=== PATIENT | female | born 1945 | race Caucasian/White ===

== ENCOUNTER 2017-02-07 11:23 | Outpatient (CLI) | payer MEDICARE, OTHER ==
--- NOTE | 2017-02-08 17:04 | Mammography Report ---
DIGITAL SCREENING MAMMOGRAM: 02/07/2017 CLINICAL INDICATION: A 71-year-old with history of late childbearing for screening. COMPARISON: 07/2014, 06/2014, 10/2012, 02/2011, 09/2008. TECHNIQUE: Routine CC and MLO projections were obtained of the breasts. The breasts again demonstrate heterogeneously dense fibroglandular parenchyma bilaterally. There is a shifting pattern of circumscribed nodules bilaterally, compatible with waxing and waning cysts. Co arse and punctate, typically benign calcifications are present. No suspicious masses, clustered micr ocalcifications, or regions of architectural distortion are identified. IMPRESSION: BENIGN FINDINGS. RECOMMENDATION: ROUTINE ANNUAL SCREENING UNLESS OTHERWISE CLINICALLY INDICATED. BIRADS CATEGORY: 2, BENIGN FINDINGS. STANDARD QUALIFYING STATEMENTS 1. This examination was reviewed with the aid of Computed-Aided Detection (CAD). 2. A negative or benign imaging report should not delay biopsy if clinically suspicious findings are present. Consider surgical consultation if warranted. More than 5% of cancers are not identified b y imaging. 3. Dense breasts may obscure an underlying neoplasm. JOB #: [id number] EXT JOB #:[id number]
== END 2017-02-07 11:24 | disposition home or self-care (01) ==
LOC: DI.S 11:23
PROVIDERS: ATTEND Physician Assistant
DX: Z12.31 Encounter for screening mammogram for malignant neoplasm of breast (principal)
CPT/HCPCS: 77067

== ENCOUNTER 2017-05-19 09:39 | Outpatient (CLI) | payer MEDICARE, OTHER ==
--- NOTE | 2017-05-19 16:41 | CT Report ---
EXAM: CT MAXILLOFACIAL WITHOUT CONTRAST EXAM DATE: 05/19/2017. CLINICAL HISTORY: Left maxillary pain and congestion, sinus pressure, headaches. COMPARISON: CT head, 05/27/2013. TECHNIQUE: Axial images were acquired of the face without intravenous contrast. Coronal and Sagittal reconstructions are created from source data. In accordance with CT protocol optimization, one or more of the following dose reduction techniques w ere utilized for this exam: automated exposure control, adjustment of mA and/or KV based on patient s ize, or use of iterative reconstructive technique. FINDINGS: Temporomandibular joints are normally located. Zygomatic arches are intact. No evident intracranial abnormality is identified, brain is incompletely visualized. Visualized mastoids are clear. No middle ear effusions. No nasopharyngeal mass. Bony nasal septum is midline. No convincing evidence of either acute or chronic maxillary sinusitis. No evidence of acute or chronic sphenoid or ethmoid sinusitis. Frontal sinuses are well aerated, a fi nding not typically seen in patients with chronic sinusitis. Right-sided middle turbinate randi bullosa is noted. IMPRESSION: No convincing evidence of acute or chronic maxillary sinusitis. Referring Provider Line: [phone] SITE ID: [id number]
== END 2017-05-19 09:40 | disposition home or self-care (01) ==
LOC: DI 09:39
PROVIDERS: ATTEND Physician Assistant
DX: R51 Headache (principal)
CPT/HCPCS: 70486

== ENCOUNTER 2017-11-19 09:45 | Day surgery (SDC) | payer MEDICARE, OTHER ==
[2017-11-19] MEDS ORDERED: LACTATED RINGERS 1,000 ML IV ONE ×2 (10:23→11:32)
[2017-11-19] MEDS ORDERED: MIDAZOLAM 2 MG/2 ML VIAL IVP ONE (10:49)
[2017-11-19] MEDS ORDERED: fentaNYL 250 MCG/5 ML VIAL IVP ONE (10:49)
[2017-11-19] MEDS ORDERED: LIDO GARGLE 30 ML BOTTLE TOP ONE (10:52)
[2017-11-19] MEDS ORDERED: LIDO GARGLE 30 ML BOTTLE ONE (10:57)
[2017-11-19 12:51] VITALS: BP 132/68
== END 2017-11-19 09:46 | disposition home or self-care (01) ==
LOC: SDS 09:45
PROVIDERS: ATTEND Surgery
PROC: 0DJD8ZZ Inspection of Lower Intestinal Tract, Via Natural or Artificial Opening Endoscopic (ICD-10-PCS; principal; 2017-11-19 11:00)
PROC: 0DB58ZX Excision of Esophagus, Via Natural or Artificial Opening Endoscopic, Diagnostic (ICD-10-PCS; 2017-11-19 11:00)
DX: Z12.11 Encounter for screening for malignant neoplasm of colon (principal); K22.70 Barrett's esophagus without dysplasia; K57.30 Diverticulosis of large intestine without perforation or abscess without bleeding; K64.8 Other hemorrhoids
CPT/HCPCS: 43239; A9270; G0121; J3010; J7120

== ENCOUNTER 2018-01-11 08:29 | Outpatient (CLI) | payer MEDICARE, OTHER | END 2018-01-11 08:30 | disposition critical access hospital (66) | LOC: EMS 08:29 | PROVIDERS: ATTEND Surgery | DX: R06.02 Shortness of breath (principal) | CPT/HCPCS: A0425; A0429 ==

== ENCOUNTER 2018-01-11 08:55 | Emergency (ER) | payer MEDICARE, OTHER ==
[2018-01-11] MEDS ORDERED: LIDOCAINE VISCOUS 2% 15 ML UDC MM STA (09:48)
[2018-01-11] MEDS ORDERED: MAG HYDROX/AL HYDROX/SIMETH 30 ML UDC PO STA ×2 (09:48→11:05)
[2018-01-11] MEDS ORDERED: PHENobarb/HYOSCY/ATROPINE/SCOP 5 ML UDC PO STA (09:48)
--- NOTE | 2018-01-11 09:52 | ED Physician Documentation ---
PD HPI CHEST PAIN - Stated complaint Stated Complaint: SOA - Chief complaint Chief Complaint: Resp - History obtained from History obtained from: Patient - History of Present Illness Timing - onset: Today Quality: Other (Chest feeling "stressed.") Location: Substernal Associated symptoms: Shortness of air - Additional information Additional information: The patient is a 72-year-old female with a history of Heath's esophagus, who presents with complaint of her chest feeling "stressed." She does not describe it as pain or pressure. It is substernal, with associated difficulty breathing. 3 days ago she had a fever to 102. She denies fever today. She has had productive cough and sore throat. This morning she had one episode of vomiting prior to the onset of her chest discomfort. Her last flareup parents esophagus was more than one year ago. She has been treated with omeprazole in the past, but has not been taking it recently. She denies history of coronary artery disease. Cardiac risk factors are negative for cigarette smoking, diabetes, hypertension, hyperlipidemia, and family history of early ME. Review of Systems Constitutional: reports: Fever (3 days ago and 2 days ago.) Nose: denies: Congestion Throat: reports: Sore throat Cardiac: reports: Chest pain / pressure. denies: Palpitations Respiratory: reports: Dyspnea, Cough GI: reports: Vomiting ( once). denies: Abdominal Pain : denies: Dysuria Skin: denies: Rash Musculoskeletal: denies: Extremity pain, Extremity swelling Neurologic: denies: Focal weakness, Numbness, Headache PD PAST MEDICAL HISTORY - Past Medical History Cardiovascular:  Respiratory: Pneumonia Endocrine/Autoimmune: HyPOthyroidism, Other (Chronic hyponatremia) GI: GERD, Ulcers, Other (Heath's esophagus) : Other HEENT: None Psych: Claustrophobia Musculoskeletal: Osteoporosis, Chronic back pain Derm: Eczema - Past Surgical History Past Surgical History: Yes General: Colonoscopy, EGD HEENT: Tonsil/Adenoidectomy - Present Medications Home Medications: Ambulatory Orders Medication Instructions Recorded Confirmed Levothyroxine Sodium 100 mcg PO DAILY 09/25/12 04/10/16 Thyroid,Pork [[place] Thyroid] 30 mg PO DAILY 11/16/17 11/19/17 Cholecalciferol (Vitamin D3) unit PO 01/11/18 [Vitamin D3] Omeprazole 20 mg PO DAILY #30 capsule. 01/11/18 Benzonatate [Tessalon Perle] 100 - 200 mg PO TID PRN #30 capsule 01/12/18 - Allergies Allergies/Adverse Reactions: Allergies Allergy/AdvReac Type Severity Reaction Status Date / Time Sulfa (Sulfonamide Allergy Mild Rash Verified 01/11/18 09:12 Antibiotics) Penicillins Allergy Hives Verified 01/11/18 09:12 - Social History Does the pt smoke?: No Smoking Status: Never smoker Does the pt drink ETOH?: No Does the pt have substance abuse?: No - Immunizations Immunizations are current?: No Immunizations: TDAP >10years/unknown - POLST Patient has POLST: No PD ED PE NORMAL - Vitals Vital signs reviewed: Yes (Mild systolic hypertension initially.) - General General: Alert and oriented X 3 - HEENT HEENT: Atraumatic, Pharynx benign - Neck Neck: No adenopathy, No JVD - Cardiac Cardiac: RRR, No murmur - Respiratory Respiratory: No respiratory distress, Clear bilaterally, Other (No chest wall tenderness to palpation.) - Abdomen Abdomen: Soft, Non tender - Back Back: No CVA TTP - Derm Derm: No rash - Extremities Extremities: No edema, No calf tenderness / cord - Neuro Neuro: Alert and oriented X 3, No motor deficit, No sensory deficit Results - Vitals Vitals: Oxygen O2 Source Room air - EKG (time done) 09:20 Rate: Rate (enter#) (62) Rhythm: NSR [place]: Normal Intervals: Normal [place] QRS: Normal Ischemia: Normal ST segments Compare to prior EKG: Unchanged from prior EKG Computer interpretation: Agree with computer - Labs Labs: Laboratory Tests 01/11/18 01/11/18 01/11/18 09:54 09:54 09:54 WBC 6.1 RBC 3.91 L Hgb 12.2 Hct 34.3 L MCV 87.8 MCH 31.3 H MCHC 35.7 RDW 13.2 Plt Count 236 MPV 6.6 L Neut # (Auto) 4.9 Lymph # (Auto) 0.6 L [place] # (Auto) 0.6 Eos # (Auto) 0.0 Baso # (Auto) 0.0 Absolute Nucleated RBC 0.00 Nucleated RBC % 0.0 Sodium 125 L Potassium 3.8 Chloride 91 L Carbon Dioxide 26 Anion Gap 8.0 BUN 8 Creatinine 0.7 Estimated GFR (MDRD) 82 L Glucose 110 H Calcium 8.6 Total Bilirubin 0.6 AST 19 ALT 13 Alkaline Phosphatase 66 Troponin I < 0.04 Total Protein 6.2 L Albumin 3.5 Globulin 2.7 Albumin/Globulin Ratio 1.3 Lipase 37 - Rads (name of study) CXR Radiology: Prelim report reviewed, EMP read contemporaneously, See rad report (Normal 2 view chest radiography.) PD MEDICAL DECISION MAKING - ED course Complexity details: reviewed old records, reviewed results, re-evaluated patient, considered differential, d/w patient, d/w family ED course: The patient's presentation is most consistent with esophageal reflux/esophagitis. Her substernal chest discomfort is not likely due to coronary artery disease, with negative cardiac risk factors, no acute abnormality on EKG, and normal troponin level. Her recent fever and cough is likely due to a viral respiratory infection. There is no evidence of pneumonia on chest x-ray. I doubt pulmonary embolus. Her chemistry panel reveals a low sodium of 125. She has a history of chronic hyponatremia, although this is at the low end of her range based on review of previous lab results. Treatment in the emergency department included administration of GI cocktail, which improved her symptoms. An additional 30 mL of Maalox was administered when she developed recurrent symptoms. Famotidine 20 mg was administered IV. She is being discharged with prescription for omeprazole. I discussed with her and her the likely diagnosis, outpatient treatment and follow-up, as well as potentially worrisome signs or symptoms that should prompt reevaluation in the emergency department. - Sepsis Event Vital Signs: Oxygen O2 Source Room air Departure - Departure Disposition: 01 Home, Self Care Clinical Impression: Esophagitis, Hyponatremia Condition: Stable Instructions: ED GERD Follow-Up: Maria Elena Wing PA [Primary Care Provider] - Prescriptions: Omeprazole 20 mg PO DAILY #30 capsule. Comments: Minimize coffee and юлия. Take omeprazole daily as prescribed. You can use liquid antacid, such as Maalox or Mylanta, if you develop recurrent symptoms. Follow up with your primary physician within 1-2 weeks. Call to schedule appointment. Return to the emergency department if you develop increasing pain, shortness of breath, or otherwise worsening symptoms. Discharge Date/Time: 01/11/18 12:39
[2018-01-11] MEDS ORDERED: A & D OINTMENT 5 GM PACKET TOP STA (09:57)
[2018-01-11 09:59] LABS: BASOPHILS % (AUTO) 0.4 %; EOSINOPHILS % (AUTO) 0.6 %; HGB - HEMOGLOBIN 12.2 g/dL (12.0-16.0); LYMPHOCYTES # (AUTO) 0.6 10^3/uL (1.5-3.5); LYMPHOCYTES % (AUTO) 9.6 %; MEAN CORPUSCULAR HEMOGLOBIN 31.3 pg (27.0-31.0); MEAN CORPUSCULAR HGB CONC 35.7 g/dL (32.0-36.0); MEAN CORPUSCULAR VOLUME 87.8 fL (81.0-99.0); MEAN PLATELET VOLUME 6.6 fL (7.9-10.8); MONOCYTES # (AUTO) 0.6 10^3/uL (0.0-1.0); MONOCYTES % (AUTO) 9.1 %; NEUTROPHILS # (AUTO) 4.9 10^3/uL (1.5-6.6); NEUTROPHILS % (AUTO) 80.3 %; PLT - PLATELET COUNT 236 10^3/uL (130-450); RED BLOOD COUNT 3.91 10^6/uL (4.20-5.40); RED CELL DISTRIBUTION WIDTH 13.2 % (12.0-15.0); WHITE BLOOD COUNT 6.1 x10^3/uL (4.8-10.8)
[2018-01-11 10:11] LABS: ALBUMIN 3.5 g/dL (3.2-5.5); ALBUMIN/GLOBULIN RATIO 1.3 (1.0-2.2); BILIRUBIN,TOTAL 0.6 mg/dL (0.2-1.0); CALCIUM 8.6 mg/dL (8.5-10.3); CREATININE 0.7 mg/dL (0.4-1.0); TOTAL PROTEIN 6.2 g/dL (6.7-8.2)
--- NOTE | 2018-01-11 11:11 | XRAY Report ---
Reason: Cough, fever Procedure Date: 01/11/2018 Accession Number: [id number] / [id number] Procedure: XR - Chest 2 View X-Ray CPT Code: 72744 FULL RESULT: EXAM: CHEST RADIOGRAPHY EXAM DATE: 01/11/2018 09:33 AM. CLINICAL HISTORY: Cough, fever. COMPARISON: Chest 10/20/2014. TECHNIQUE: 2 views. FINDINGS: Lungs/Pleura: No focal opacities evident. No pleural effusion. No pneumothorax. Normal volumes. Mediastinum: Heart and mediastinal contours are unremarkable. IMPRESSION: No evidence of acute thoracic process RADIA
[2018-01-11] MEDS ORDERED: FAMOTIDINE 20 MG/50 ML 50 ML IV ONE (11:23)
[2018-01-11 12:12] VITALS: BP 137/72
== END 2018-01-11 12:39 | disposition home or self-care (01) ==
LOC: EDUNIT# → ED 08:55
DX: K20.9 Esophagitis, unspecified (principal); E87.1 Hypo-osmolality and hyponatremia; E03.9 Hypothyroidism, unspecified
CPT/HCPCS: 36415; 71046; 80053; 83690; 84484; 85025; 93005; 96365; 99283; A9270

== ENCOUNTER 2018-01-12 11:40 | Emergency (ER) | payer MEDICARE, OTHER ==
[2018-01-12] MEDS ORDERED: DEXAMETHASONE 10 MG/ML VIAL PO STA (12:55)
--- NOTE | 2018-01-12 12:55 | ED Physician Documentation ---
PD HPI URI - Stated complaint Stated Complaint: SORE THROAT/COUGH - Chief complaint Chief Complaint: Heent - History obtained from History obtained from: Patient - History of Present Illness Timing - onset: How many weeks ago (1) Timing duration: Weeks (1) Timing details: Gradual onset Pain level max: 0 Pain level now: 0 Associated symptoms: Fever (100.1), Nasal congestion, Rhinorrhea, Sore throat, Productive cough Contributing factors: Sick contact Improves by: Rest Worsened by: Activity, Breathing Recently seen: Emergency Dept (yesterday for same) Review of Systems Constitutional: denies: Chills Ears: denies: Ear pain Nose: reports: Rhinorrhea / runny nose, Congestion Throat: reports: Sore throat GI: denies: Vomiting, Diarrhea Skin: denies: Rash Musculoskeletal: denies: Neck pain, Back pain Neurologic: denies: Headache PD PAST MEDICAL HISTORY - Past Medical History Past Medical History: Yes Cardiovascular:  Respiratory: Pneumonia Endocrine/Autoimmune: HyPOthyroidism GI: GERD, Ulcers : Other HEENT: None Psych: Claustrophobia Musculoskeletal: Osteoporosis, Chronic back pain Derm: Eczema - Past Surgical History Past Surgical History: Yes General: Colonoscopy, EGD HEENT: Tonsil/Adenoidectomy - Present Medications Home Medications: Ambulatory Orders Medication Instructions Recorded Confirmed Levothyroxine Sodium 100 mcg PO DAILY 09/25/12 04/10/16 Thyroid,Pork [[place] Thyroid] 30 mg PO DAILY 11/16/17 11/19/17 Cholecalciferol (Vitamin D3) unit PO 01/11/18 [Vitamin D3] Omeprazole 20 mg PO DAILY #30 capsule. 01/11/18 Benzonatate [Tessalon Perle] 100 - 200 mg PO TID PRN #30 capsule 01/12/18 - Allergies Allergies/Adverse Reactions: Allergies Allergy/AdvReac Type Severity Reaction Status Date / Time Sulfa (Sulfonamide Allergy Mild Rash Verified 01/11/18 09:12 Antibiotics) Penicillins Allergy Hives Verified 01/11/18 09:12 - Social History Does the pt smoke?: No Smoking Status: Never smoker Does the pt drink ETOH?: No Does the pt have substance abuse?: No - Immunizations Immunizations are current?: No Immunizations: TDAP >10years/unknown - POLST Patient has POLST: No PD ED PE NORMAL - Vitals Vital signs reviewed: Yes - General General: Alert and oriented X 3, No acute distress, Well developed/nourished - HEENT HEENT: PERRL, Ears normal, Moist mucous membranes, Other (Mild posterior oropharyngeal erythema without tonsillar exudates. Uvula midline. Normal phonation.) - Neck Neck: Supple, no meningeal sign - Cardiac Cardiac: RRR, Strong equal pulses - Respiratory Respiratory: No respiratory distress, Clear bilaterally - Abdomen Abdomen: Soft, Non tender, Non distended - Derm Derm: Warm and dry, No rash - Neuro Neuro: Alert and oriented X 3 - Psych Psych: Normal mood, Normal affect Results - Vitals Vitals: Vital Signs - 24 hr 01/12/18 01/12/18 11:44 13:06 Temperature 36.5 C Heart Rate 67 65 Respiratory 18 20 Rate Blood Pressure 141/63 H 137/72 H O2 Saturation 98 98 Oxygen O2 Source Room air - Labs Labs: Laboratory Tests 01/12/18 11:46 Group A Strep Rapid Negative PD MEDICAL DECISION MAKING - ED course Complexity details: reviewed old records, reviewed results, re-evaluated patient, considered differential, d/w patient ED course: Patient is a 72-year-old female who was seen here yesterday for a viral syndrome. States that they did not swab her throat for possible strep yesterday so returned. Rapid strep is negative. Clinically does not appear consistent with streptococcal pharyngitis. Given a dose of dexamethasone will place on cough medication for home. We will continue supportive care. Patient is well- appearing, nontoxic. Afebrile. Patient counseled regarding signs and symptoms for which I believe and urgent re-evaluation would be necessary. Patient with good understanding of and agreement to plan and is comfortable going home at this time This document was made in part using voice recognition software. While efforts are made to proofread this document, sound alike and grammatical errors may occur. - Sepsis Event Vital Signs: Vital Signs - 24 hr 01/12/18 01/12/18 11:44 13:06 Temperature 36.5 C Heart Rate 67 65 Respiratory 18 20 Rate Blood Pressure 141/63 H 137/72 H O2 Saturation 98 98 Oxygen O2 Source Room air Departure - Departure Disposition: 01 Home, Self Care Clinical Impression: Viral syndrome Condition: Good Instructions: ED Viral Syndrome Follow-Up: Maria Elena Wing PA [Primary Care Provider] - Within 1 week Prescriptions: Benzonatate [Tessalon Perle] 100 - 200 mg PO TID PRN #30 capsule PRN Reason: Cough Comments: Drink plenty of fluids and rest. Return if you worsen. The prescription was sent to [facility]. Discharge Date/Time: 01/12/18 13:07
[2018-01-12] MEDS ORDERED: CHERRY SYRUP 10 ML UDC PO ONE (12:57)
[2018-01-12 13:07] VITALS: BP 137/72
== END 2018-01-12 13:07 | disposition home or self-care (01) ==
LOC: ED 11:40
DX: B34.9 Viral infection, unspecified (principal); E03.9 Hypothyroidism, unspecified
CPT/HCPCS: 87070; 87430; 99283; A9270

== ENCOUNTER 2018-06-25 13:40 | Outpatient (CLI) | payer MEDICARE, OTHER ==
--- NOTE | 2018-06-26 09:21 | Mammography Report ---
Reason: SCREENING MAMMO Procedure Date: 06/25/2018 Accession Number: [id number] / [id number] Procedure: [facility] - Screening Mammo w/Sarkis CPT Code: FULL RESULT: EXAM: Screening Mammo w/Sarkis DATE: 06/25/2018 2:10 PM CLINICAL HISTORY: Screening encounter. History of late childbearing. TECHNIQUE: Bilateral CC and MLO views were obtained. COMPARISON: 02/07/2017 through 03/27/2011. FINDINGS: The breasts demonstrate heterogeneously dense fibroglandular parenchyma bilaterally. There are coarse typically benign calcifications. There are well-circumscribed bilateral nodules which are following a pattern of waxing and waning distribution over the years, this remains typically benign and most compatible with cysts. No suspicious masses, clustered microcalcifications, or regions of architectural distortion are identified. IMPRESSION: Benign findings RECOMMENDATION: Routine annual screening unless otherwise clinically indicated. BIRADS CATEGORY 2: Benign findings STANDARD QUALIFYING STATEMENTS: 1. This examination was not reviewed with the aid of Computer-Aided Detection (CAD). 2. A negative or benign imaging report should not delay biopsy if clinically suspicious findings are present. Consider surgical consultation if warrented. More than 5% of cancers are not identified by imaging. 3. Dense breasts may obscure an underlying neoplasm. 4. This examination was reviewed with the aid of 3D breast imaging (tomosynthesis).
== END 2018-06-25 13:41 | disposition home or self-care (01) ==
LOC: DI 13:40
PROVIDERS: ATTEND Physician Assistant
DX: Z12.31 Encounter for screening mammogram for malignant neoplasm of breast (principal)
CPT/HCPCS: 77063; 77067

== ENCOUNTER 2018-06-25 13:45 | Outpatient (CLI) | payer MEDICARE, OTHER ==
--- NOTE | 2018-06-26 10:07 | DEXA Report ---
Reason: ASYMPTOMATIC MENOPAUSAL Procedure Date: 06/25/2018 Accession Number: [id number] / [id number] Procedure: DEX - Dexa Spine and/or Hip CPT Code: FULL RESULT: EXAM: Dexa Spine and/or Hip DATE: 06/25/2018 2:23 PM CLINICAL HISTORY: ASYMPTOMATIC MENOPAUSAL TECHNIQUE: Dual energy x-ray absorptiometry (DXA) was performed on a [employer] System. Regions measured are the AP Spine, femoral neck, and if needed forearm. COMPARISON: None. In accordance with the International Society for Clinical Densitometry (ISCD) guidelines, data from previous exams may be reanalyzed using current recommendations and techniques. This is done to allow a more accurate basis for comparison with the current study. FINDINGS: The data for the lumbar spine is as follows: BMD (g/cm/cm) T-SCORE Z-SCORE REGION L1 0.679 -3.8 -2.1 L2 0.786 -3.5 -1.8 L3 0.750 -3.7 -2.1 L4 0.925 -2.3 -0.6 TOTAL 0.790 -3.3 -1.6 NOTE: All evaluable vertebrae are used for classification The data for the hip is as follows: BMD (g/cm/cm) T-SCORE Z-SCORE REGION Neck 0.665 -2.7 -0.9 TOTAL 0.732 -2.2 -0.6 NOTE: The femoral neck or total proximal femur, whichever is lowest, is used for classification. IMPRESSION: THE WHO CLASSIFICATION BASED ON THE INTERNATIONAL REFERENCE STANDARD IS OSTEOPOROSIS. THE FRACTURE RISK IS HIGH. RECOMMENDATION: Patients with diagnosis of osteoporosis or osteopenia should have regular bone mineral density assessment. For those eligible for Medicare, routine testing is allowed once every 2 years. Testing frequency can be increased for patients who have rapidly progressing disease or for those who are receiving medical therapy to restore bone mass. COMMENT: World Health Organization (WHO) definitions for osteoporosis and osteopenia: NORMAL BMD: T-score at -1.0 or higher, fracture risk is low OSTEOPENIA BMD: T-score between -1.0 and -2.5, fracture risk is increased. OSTEOPOROSIS BMD: T-score at -2.5 or lower, fracture risk is high. National Osteoporosis Foundation recommends: 1. Obtain adequate dietary calcium (at least 1200 mg per day) and vitamin D (400-800 international units per day). 2. Participate, as appropriate, in regular weightbearing and muscle-strengthening exercise. 3. Avoid tobacco use and reduce alcohol and caffeine intake. 4. For more detailed information see the website at www.NOF.org.
== END 2018-06-25 13:46 | disposition home or self-care (01) ==
LOC: DI 13:45
PROVIDERS: ATTEND Physician Assistant
DX: Z13.820 Encounter for screening for osteoporosis (principal); M81.0 Age-related osteoporosis without current pathological fracture; Z78.0 Asymptomatic menopausal state
CPT/HCPCS: 77080

== ENCOUNTER 2018-09-18 09:46 | Outpatient (CLI) | payer MEDICARE, OTHER ==
--- NOTE | 2018-09-18 12:57 | XRAY Report ---
Reason: RADICULAR SYMPTOMS Procedure Date: 09/18/2018 Accession Number: [id number] / [id number] Procedure: XR - Cervical Spine 2 View CPT Code: FULL RESULT: EXAM: CERVICAL SPINE RADIOGRAPHY EXAM DATE: 09/18/2018 10:25 AM. CLINICAL HISTORY: Radicular symptoms. COMPARISONS: None. TECHNIQUE: 3 views. FINDINGS: Alignment: Cervical curvature is hyperlordotic without listhesis or scoliosis detected. Bones: The cervical vertebral bodies and posterior elements are well visualized from the skull base through C7-T1. No fractures or bone lesions. Disks: Multilevel loss of disk space height most pronounced at C5 to C7. Facets: There is multilevel facet arthropathy with marked lateral mass hypertrophy throughout the cervical spine. Soft Tissues: Normal. No prevertebral soft tissue swelling. The visualized lung apices are clear. IMPRESSION: Marked degenerative changes as described. RADIA
== END 2018-09-18 09:47 | disposition home or self-care (01) ==
LOC: DI 09:46
PROVIDERS: ATTEND Physician Assistant
DX: M50.30 Other cervical disc degeneration, unspecified cervical region (principal); M47.812 Spondylosis without myelopathy or radiculopathy, cervical region
CPT/HCPCS: 72040

== ENCOUNTER 2019-03-20 18:15 | Outpatient (CLI) | payer MEDICARE, OTHER | END 2019-03-20 18:16 | disposition critical access hospital (66) | LOC: EMS 18:15 | PROVIDERS: ATTEND Surgery | DX: R07.9 Chest pain, unspecified (principal) | CPT/HCPCS: A0425; A0429 ==

== ENCOUNTER 2019-03-20 18:40 | Emergency (ER) | payer MEDICARE, OTHER ==
[2019-03-20] MEDS ORDERED: ONDANSETRON 4 MG/2 ML VIAL IVP STA (18:50)
--- NOTE | 2019-03-20 18:51 | ED Physician Documentation ---
History of Present Illness - Stated complaint Stated Complaint: CP - Chief complaint Chief Complaint: Abd Pain - Additonal information Additional information: This is a 74-year-old female with a history of anxiety and Heath's esophagus, hyponatremia, who presents with substernal and epigastric discomfort. This began yesterday in the absence of known inciting factors. It subsided somewhat in the evening but then recurred this morning and has been fairly constant since then. She is felt nauseated but has no vomiting. Her pain is located epigastrium and radiates up towards her substernal region, does not radiate to her arms or her neck. She denies diaphoresis. No shortness of breath, no cough, no fever. No history of blood clots. she did take aspirin per EMS protocol. Review of Systems Constitutional: denies: Fever Cardiac: reports: Chest pain / pressure Respiratory: denies: Dyspnea GI: reports: Nausea : denies: Dysuria Immunocompromised: denies: Immunocompromised PD PAST MEDICAL HISTORY - Past Medical History Cardiovascular:  Respiratory: Pneumonia Endocrine/Autoimmune: HyPOthyroidism GI: GERD, Ulcers : Other HEENT: None Psych: Claustrophobia Musculoskeletal: Osteoarthritis, Osteoporosis, Chronic back pain Derm: Eczema - Past Surgical History Past Surgical History: Yes General: Colonoscopy, EGD HEENT: Tonsil/Adenoidectomy - Present Medications Home Medications: Ambulatory Orders Medication Instructions Recorded Confirmed Levothyroxine Sodium 100 mcg PO DAILY 09/25/12 12/12/18 Cholecalciferol (Vitamin D3) unit PO 01/11/18 [Vitamin D3] Bioadrine 12/12/18 Iodine Synergy 12/12/18 Famotidine 20 mg PO DAILY #14 tablet 03/20/19 - Allergies Allergies/Adverse Reactions: Allergies Allergy/AdvReac Type Severity Reaction Status Date / Time Sulfa (Sulfonamide Allergy Mild Rash Verified 03/20/19 18:48 Antibiotics) Penicillins Allergy Hives Verified 03/20/19 18:48 - Social History Does the pt smoke?: No Smoking Status: Never smoker Does the pt drink ETOH?: No Does the pt have substance abuse?: No - Immunizations Immunizations are current?: No Immunizations: TDAP >10years/unknown - POLST Patient has POLST: No PD ED PE NORMAL - Vitals Vital signs reviewed: Yes - General General: Alert and oriented X 3, No acute distress - HEENT HEENT: PERRL - Neck Neck: Supple, no meningeal sign - Cardiac Cardiac: RRR, No murmur - Respiratory Respiratory: Clear bilaterally - Abdomen Abdomen: Normal bowel sounds, Soft, Non tender, Non distended, Other (Negative Sierra sign, no epigastric or right upper quadrant tenderness to deep palpation.) - Derm Derm: Warm and dry - Extremities Extremities: No deformity - Neuro Neuro: Alert and oriented X 3 - Psych Psych: Normal mood, Normal affect Results - Vitals Vitals: Oxygen O2 Source Room air - EKG (time done) 18:44 Other comments: Other comments (Rate 70, rhythm sinus, there are no ST segment changes. No abnormal Twave inversions. There is some mild T wave flattening in aVL. Computer read is ST elevation inferiorly, I disagree with this.) - Labs Labs: Laboratory Tests 03/20/19 03/20/19 03/20/19 18:55 18:55 18:55 WBC 5.4 RBC 4.04 L Hgb 12.5 Hct 35.8 L MCV 88.6 MCH 30.9 MCHC 34.9 RDW 12.1 Plt Count 294 MPV 8.5 Neut # (Auto) 3.4 Lymph # (Auto) 1.3 L [place] # (Auto) 0.5 Eos # (Auto) 0.1 Baso # (Auto) 0.0 Absolute Nucleated RBC 0.00 Nucleated RBC % 0.0 Sodium 124 L Potassium 3.7 Chloride 88 L Carbon Dioxide 25 Anion Gap 11.0 BUN 13 Creatinine 0.8 Estimated GFR (MDRD) 70 L Glucose 151 H Calcium 9.0 Total Bilirubin 0.4 AST 24 ALT 16 Alkaline Phosphatase 60 Troponin I High Sens < 2.3 L Total Protein 7.1 Albumin 4.2 Globulin 2.9 Albumin/Globulin Ratio 1.4 Lipase 82 H - Rads (name of study) CXR Radiology: Other (No acute abnormality) PD MEDICAL DECISION MAKING - ED course ED course: On arrival pt is well-appearing. EKG unrevealing without convincing signs of ischemia or dysrhythmia. CXR unremarkable. Troponin negative and given the duration of her symptoms a single troponin is sufficient. Labs show a stable hyponatremia of 124, most recently she was 125. She has no gait change, confusion, seizures, or other symptoms. This is a chronic issue for her. I discussed her case with Dr. Nowak who does not feel this is an indication for admission given its chronicity and that she is asymptomatic. She does have a mild lipase elevation but is tolerating PO and abdomen is non-t barbra on re-evalution. After famotidine, GI cocktail, and zofran her symptoms are greatly improved. She likely has gastritis and I recommended taking famotidine and following up with her PCP very closely in the next 1-2 days on her symptoms and her sodium. She can return to the ED if unable to see her PCP. Very mild pancreatitis is also possible. I discussed strict return precautions with any worsening or new symptoms and she was discharged home. Departure - Departure Disposition: Home, Self Care Clinical Impression: Epigastric pain, Hyponatremia, Elevated lipase Condition: Good Instructions: Hyponatremia Dc, ED Epigastric Pain [facility] Follow-Up: Maria Elena Wing PA [Primary Care Provider] - Within 3 Days (For recheck of sodium and follow up on epigastric pain) Prescriptions: Famotidine 20 mg PO DAILY #14 tablet Comments: You were seen today for some discomfort in your upper abdomen. We do not see signs of obvious problems with your heart or lungs. Your sodium is low and needs to be followed closely with your primary care provider, within the next few days. If unable to see your PCP you can return To the emergency department for a recheck. Your sodium was 124 today. If you are developing confusion, difficulty walking, seizures, or any other concerning symptoms return to the emergency department. Likewise if you develop shortness of breath, chest pain, increasing abdominal pain, or fever, come back to the emergency department. Your lipase, which is a enzyme the pancreas was also slightly elevated (82). This should also be followed up with her primary care provider. You may try the famotidine which will help with some of your discomfort is caused by gastritis or information of your stomach. Discharge Date/Time: 03/20/19 22:37
[2019-03-20 19:08] LABS: BASOPHILS % (AUTO) 0.6 %; EOSINOPHILS # (AUTO) 0.1 10^3/uL (0.0-0.7); EOSINOPHILS % (AUTO) 0.9 %; HGB - HEMOGLOBIN 12.5 g/dL (12.0-16.0); LYMPHOCYTES # (AUTO) 1.3 10^3/uL (1.5-3.5); LYMPHOCYTES % (AUTO) 24.6 %; MEAN CORPUSCULAR HEMOGLOBIN 30.9 pg (27.0-31.0); MEAN CORPUSCULAR HGB CONC 34.9 g/dL (32.0-36.0); MEAN CORPUSCULAR VOLUME 88.6 fL (81.0-99.0); MEAN PLATELET VOLUME 8.5 fL (7.9-10.8); MONOCYTES # (AUTO) 0.5 10^3/uL (0.0-1.0); MONOCYTES % (AUTO) 10.1 %; NEUTROPHILS # (AUTO) 3.4 10^3/uL (1.5-6.6); NEUTROPHILS % (AUTO) 63.4 %; PLT - PLATELET COUNT 294 10^3/uL (130-450); RED BLOOD COUNT 4.04 10^6/uL (4.20-5.40); RED CELL DISTRIBUTION WIDTH 12.1 % (12.0-15.0); WHITE BLOOD COUNT 5.4 x10^3/uL (4.8-10.8)
[2019-03-20 19:23] LABS: ALBUMIN 4.2 g/dL (3.2-5.5); ALBUMIN/GLOBULIN RATIO 1.4 (1.0-2.2); BILIRUBIN,TOTAL 0.4 mg/dL (0.2-1.0); CREATININE 0.8 mg/dL (0.4-1.0); TOTAL PROTEIN 7.1 g/dL (6.7-8.2)
--- NOTE | 2019-03-20 19:40 | XRAY Report ---
Reason: chest pain Procedure Date: 03/20/2019 Accession Number: [id number] / [id number] Procedure: XR - Chest 2 View X-Ray CPT Code: 21822 Final Report FULL RESULT: EXAM: CHEST RADIOGRAPHY EXAM DATE: 03/20/2019 07:16 PM HISTORY: chest pain COMPARISON: CHEST 2 VIEW 01/11/2018 9:28 AM TECHNIQUE: Two Views FINDINGS: Lungs/Pleura: The lungs are clear. No consolidation, edema or pleural effusion. Cardiomediastinal silhouette: Unremarkable accounting for technique. Other: Old lower thoracic vertebral compression fracture noted. IMPRESSION: Essentially normal two-view chest. Clear lungs. RADIA
[2019-03-20 21:40] VITALS: BP 161/76
[2019-03-20] MEDS ORDERED: FAMOTIDINE 20 MG TABLET PO STA (21:58)
[2019-03-20] MEDS ORDERED: MAG HYDROX/AL HYDROX/SIMETH 30 ML UDC PO STA (21:58)
== END 2019-03-20 22:37 | disposition home or self-care (01) ==
LOC: EDUNIT# → ED 18:40
DX: R10.31 Right lower quadrant pain (principal); E87.1 Hypo-osmolality and hyponatremia; R74.8 Abnormal levels of other serum enzymes
CPT/HCPCS: 36415; 71046; 80053; 83690; 84484; 85025; 93005; 96374; 99284; A9270

== ENCOUNTER 2019-03-23 09:18 | Emergency (ER) | payer MEDICARE, OTHER ==
[2019-03-23] MEDS ORDERED: SODIUM CHLORIDE 0.9% 1,000 ML IV ONE (10:55)
--- NOTE | 2019-03-23 10:57 | ED Physician Documentation ---
History of Present Illness - Stated complaint Stated Complaint: DIZZINESS - Chief complaint Chief Complaint: General - History obtained from History obtained from: Patient - History of Present Illness Timing: Today - Additonal information Additional information: 74-year-old female has been recently evaluated in the emergency department for epigastric pain was noted to be hyponatremic at the time. She has now developed dizziness and lightheadedness. She has had these symptoms previously. She states that she has had resolution of her pain from her GERD and this is no longer bothering her. Review of Systems Constitutional: reports: Myalgias. denies: Fever, Chills Eyes: denies: Decreased vision Ears: denies: Ear pain Nose: denies: Rhinorrhea / runny nose, Congestion Throat: denies: Sore throat Cardiac: denies: Chest pain / pressure, Palpitations Respiratory: denies: Dyspnea, Cough GI: denies: Abdominal Pain, Nausea, Vomiting : denies: Dysuria, Frequency Skin: denies: Rash, Lesions Musculoskeletal: denies: Neck pain, Back pain, Extremity pain Neurologic: reports: Other (dizziness on standing). denies: Generalized weakness, Focal weakness, Numbness PD PAST MEDICAL HISTORY - Past Medical History Cardiovascular:  Respiratory: Pneumonia Endocrine/Autoimmune: HyPOthyroidism GI: GERD, Ulcers : Other HEENT: None Psych: Claustrophobia Musculoskeletal: Osteoarthritis, Osteoporosis, Chronic back pain Derm: Eczema - Past Surgical History Past Surgical History: Yes General: Colonoscopy, EGD HEENT: Tonsil/Adenoidectomy - Present Medications Home Medications: Ambulatory Orders Medication Instructions Recorded Confirmed Levothyroxine Sodium 100 mcg PO DAILY 09/25/12 12/12/18 Cholecalciferol (Vitamin D3) unit PO 01/11/18 [Vitamin D3] Bioadrine 12/12/18 Iodine Synergy 12/12/18 Famotidine 20 mg PO DAILY #14 tablet 03/20/19 - Allergies Allergies/Adverse Reactions: Allergies Allergy/AdvReac Type Severity Reaction Status Date / Time Sulfa (Sulfonamide Allergy Mild Rash Verified 03/23/19 09:26 Antibiotics) Penicillins Allergy Hives Verified 03/23/19 09:26 - Social History Does the pt smoke?: No Smoking Status: Never smoker Does the pt drink ETOH?: No Does the pt have substance abuse?: No - Immunizations Immunizations are current?: No Immunizations: TDAP >10years/unknown - POLST Patient has POLST: No PD ED PE NORMAL - Vitals Vital signs reviewed: Yes (hypertensive with a wide pulse pressure) - General General: Alert and oriented X 3, No acute distress, Well developed/nourished - HEENT HEENT: Atraumatic, PERRL, EOMI - Neck Neck: Supple, no meningeal sign - Cardiac Cardiac: RRR, No murmur - Respiratory Respiratory: No respiratory distress, Clear bilaterally - Abdomen Abdomen: Normal bowel sounds, Soft, Non tender, Non distended, No organomegaly - Back Back: No CVA TTP, No spinal TTP - Derm Derm: Normal color, Warm and dry, No rash - Extremities Extremities: No deformity, No edema - Neuro Neuro: Alert and oriented X 3, senior health physics technician 2-12 intact, No motor deficit, No sensory deficit, Normal speech Eye Opening: Spontaneous Motor: Obeys Commands Verbal: Oriented GCS Score: 15 - Psych Psych: Normal mood, Normal affect Results - Vitals Vitals: Vital Signs - 24 hr 03/23/19 03/23/19 03/23/19 09:24 11:03 12:18 Temperature 36.6 C 36.6 C Heart Rate 70 65 61 Respiratory 14 18 18 Rate Blood Pressure 169/50 H 150/74 H O2 Saturation 100 99 100 Oxygen O2 Source Room air - Labs Labs: Laboratory Tests 03/23/19 03/23/19 03/23/19 09:39 09:39 11:40 WBC 5.8 RBC 3.96 L Hgb 12.4 Hct 36.5 L MCV 92.2 MCH 31.3 H MCHC 34.0 RDW 12.5 Plt Count 316 MPV 8.9 Neut # (Auto) 4.4 Lymph # (Auto) 0.8 L [place] # (Auto) 0.5 Eos # (Auto) 0.0 Baso # (Auto) 0.0 Absolute Nucleated RBC 0.00 Nucleated RBC % 0.0 Sodium 133 L Potassium 3.8 Chloride 98 L Carbon Dioxide 26 Anion Gap 9.0 BUN 17 Creatinine 0.9 Estimated GFR (MDRD) 61 L Glucose 91 Calcium 8.8 Total Bilirubin 0.5 AST 22 ALT 15 Alkaline Phosphatase 63 Total Protein 6.8 Albumin 4.0 Globulin 2.8 Albumin/Globulin Ratio 1.4 Lipase 57 H Urine Color YELLOW Urine Clarity CLEAR Urine pH 6.5 Ur Specific [place] 1.015 Urine Protein NEGATIVE Urine Glucose (UA) NEGATIVE Urine Ketones NEGATIVE Urine Occult Blood NEGATIVE Urine Nitrite NEGATIVE Urine Bilirubin NEGATIVE Urine Urobilinogen 0.2 (NORMAL) Ur Leukocyte Esterase NEGATIVE Ur Microscopic Review NOT INDICATED Urine Culture Comments NOT INDICATED Procedures - IVC sono (time) 1050 Bedside IVC sono: IVC measures (cm) (1.38), IVC collapsed c insp (cm) (complete), Dehydration (est 1 liter deficit .) PD MEDICAL DECISION MAKING - ED course Complexity details: reviewed old records, reviewed results, re-evaluated patient, considered differential, d/w patient ED course: 74-year-old female with history of hyponatremia has restricted her water intake and has now become dizzy and lightheaded on standing. She is found to be dehydrated on interrogation the inferior vena cava and a liter saline is replaced. Today her serum sodium is 133. She has resolution of her symptoms at the conclusion of treatment. Departure - Departure Disposition: 01 Home, Self Care Clinical Impression: Dehydration Condition: Stable Instructions: ED Dehydration Follow-Up: Maria Elena Wing PA [Primary Care Provider] -
[2019-03-23 11:01] LABS: BASOPHILS % (AUTO) 0.7 %; EOSINOPHILS % (AUTO) 0.7 %; HGB - HEMOGLOBIN 12.4 g/dL (12.0-16.0); LYMPHOCYTES # (AUTO) 0.8 10^3/uL (1.5-3.5); LYMPHOCYTES % (AUTO) 13.9 %; MEAN CORPUSCULAR HEMOGLOBIN 31.3 pg (27.0-31.0); MEAN CORPUSCULAR VOLUME 92.2 fL (81.0-99.0); MEAN PLATELET VOLUME 8.9 fL (7.9-10.8); MONOCYTES # (AUTO) 0.5 10^3/uL (0.0-1.0); NEUTROPHILS # (AUTO) 4.4 10^3/uL (1.5-6.6); NEUTROPHILS % (AUTO) 76.5 %; PLT - PLATELET COUNT 316 10^3/uL (130-450); RED BLOOD COUNT 3.96 10^6/uL (4.20-5.40); RED CELL DISTRIBUTION WIDTH 12.5 % (12.0-15.0); WHITE BLOOD COUNT 5.8 x10^3/uL (4.8-10.8)
[2019-03-23 11:10] LABS: ALBUMIN/GLOBULIN RATIO 1.4 (1.0-2.2); BILIRUBIN,TOTAL 0.5 mg/dL (0.2-1.0); CALCIUM 8.8 mg/dL (8.5-10.3); CREATININE 0.9 mg/dL (0.4-1.0); TOTAL PROTEIN 6.8 g/dL (6.7-8.2)
[2019-03-23 11:52] LABS: BILIRUBIN,URINE NEGATIVE (NEGATIVE); GLUCOSE, URINE (UA) NEGATIVE (NEGATIVE); KETONES,URINE (UA) NEGATIVE (NEGATIVE); LEUKOCYTE ESTERASE, URINE NEGATIVE (NEGATIVE); NITRITE,URINE NEGATIVE (NEGATIVE); OCCULT BLOOD,URINE NEGATIVE (NEGATIVE); PH,URINE 6.5 PH (5.0-7.5); PROTEIN,URINE NEGATIVE (NEGATIVE); UROBILINOGEN,URINE 0.2 (NORMAL) E.U./dL (NORMAL)
[2019-03-23 12:04] LABS: CLARITY,URINE CLEAR (CLEAR)
[2019-03-23 12:45] VITALS: BP 144/74
== END 2019-03-23 12:49 | disposition home or self-care (01) ==
LOC: ED 09:18
DX: E86.0 Dehydration (principal); E87.1 Hypo-osmolality and hyponatremia; K21.9 Gastro-esophageal reflux disease without esophagitis
CPT/HCPCS: 36415; 80053; 81001; 81003; 83690; 85025; 87086; 96360; 99283

== ENCOUNTER 2020-01-08 12:58 | Day surgery (SDC) | payer MEDICARE, OTHER ==
[2020-01-08] MEDS ORDERED: fentaNYL 100 MCG/2 ML VIAL IVP ONE (12:59)
[2020-01-08] MEDS ORDERED: MIDAZOLAM 2 MG/2 ML VIAL IVP ONE (12:59)
[2020-01-08] MEDS ORDERED: LACTATED RINGERS 1,000 ML IV ONE ×2 (13:04→15:02)
[2020-01-08] MEDS ORDERED: LIDO GARGLE 30 ML BOTTLE ONE (14:38)
[2020-01-08] MEDS ORDERED: LIDO GARGLE 30 ML BOTTLE PO ONE (14:45)
[2020-01-08] MEDS ORDERED: BENZOCAINE/TETRACAINE/BUTAMBEN 20 GM TOP ONE (14:45)
[2020-01-08 15:55] VITALS: BP 125/66
== END 2020-01-08 12:59 | disposition home or self-care (01) ==
LOC: SDS 12:58
PROVIDERS: ATTEND Surgery
PROC: 0DB68ZX Excision of Stomach, Via Natural or Artificial Opening Endoscopic, Diagnostic (ICD-10-PCS; 2020-01-08)
PROC: 0DB58ZX Excision of Esophagus, Via Natural or Artificial Opening Endoscopic, Diagnostic (ICD-10-PCS; 2020-01-08)
PROC: 0DB98ZX Excision of Duodenum, Via Natural or Artificial Opening Endoscopic, Diagnostic (ICD-10-PCS; principal; 2020-01-08 14:00)
DX: Z09 Encounter for follow-up examination after completed treatment for conditions other than malignant neoplasm (principal); Z87.19 Personal history of other diseases of the digestive system; K21.9 Gastro-esophageal reflux disease without esophagitis; K44.9 Diaphragmatic hernia without obstruction or gangrene
CPT/HCPCS: 43239; A9270; J7120

== ENCOUNTER 2020-07-05 15:14 | Outpatient (CLI) | payer MEDICARE, OTHER ==
--- NOTE | 2020-07-05 15:52 | DEXA Report ---
PROCEDURE: Dexa Spine and/or Hip INDICATIONS: OSTEOPOROSIS TECHNIQUE: Dual energy x-ray absorptiometry (DXA) was performed on a [employer] System. Regions measur ed are the AP Spine, femoral neck, and if needed forearm. COMPARISON: None. FINDINGS: Lumbar Spine: Bone Mineral Density 0.826 g/cm/cm,T score -2.9, Left Femoral Neck: Bone Mineral Density 0.730 g/cm/cm, T score -2.2, (T score greater or equal to -1.0: NORMAL) (T score from -1.1 to -2.4: OSTEOPENIA) (T score less than or equal to -2.5 to: OSTEOPOROSIS) Impression: Osteoporosis. Patients with diagnosis of osteoporosis or osteopenia should have regular bone mineral density assess ment. For those eligible for Medicare, routine testing is allowed once every 2 years. Testing frequ ency can be increased for patients who have rapidly progressing disease or for those who are receivin g medical therapy to restore bone mass. Reviewed by: Roni Armijo MD on 07/05/2020 3:51 PM PST Approved by: Roni Armijo MD on 07/05/2020 3:51 PM PST Station ID: [id number]
== END 2020-07-05 15:15 | disposition home or self-care (01) ==
LOC: DI 15:14
PROVIDERS: ATTEND Registered Nurse
DX: M81.0 Age-related osteoporosis without current pathological fracture (principal)

== ENCOUNTER 2020-08-24 10:32 | Outpatient (CLI) | payer MEDICARE, OTHER ==
--- NOTE | 2020-08-25 13:10 | Mammography Report ---
BILATERAL DIGITAL SCREENING MAMMOGRAM 3D/2D: 08/24/2020 CLINICAL: Family history of breast cancer. Comparison is made to exams dated: 06/25/2018 mammogram, 02/07/2017 mammogram, and 08/11/2014 mammogra m - [facility]. The tissue of both breasts is predominantly fatty. There are stable benign cysts in both breasts. No significant masses, calcifications, or other findings are seen in either breast. There has been no significant interval change. IMPRESSION: BENIGN There is no mammographic evidence of malignancy. A 1 year screening mammogram is recommended. This exam was interpreted at Station ID: [id number]. NOTE: For mammograms, a report in lay terms will be sent to the patient. Approximately 15% of breast malignancies will not be visualized mammographically. In the management of a palpable breast mass, a negative mammogram must not discourage biopsy of a clinically suspicious lesion. Electronically Signed By: Raman Danielson acr/penrad:08/24/2020 11:12:47 ACR BI-RADS Category 2: Benign Finding(s) 3342F PARENCHYMAL PATTERN: (F) - The breast(s) demonstrate(s) diffuse fatty replacement. BI-RADS CATEGORY: (2) - 2 RECOMMENDATION: (ANNUAL) - Recommend routine annual screening mammography. [id number] 1 year screening LATERALITY: (B)
== END 2020-08-24 10:33 | disposition home or self-care (01) ==
LOC: DI.S 10:32
PROVIDERS: ATTEND Registered Nurse
DX: Z12.31 Encounter for screening mammogram for malignant neoplasm of breast (principal); Z80.3 Family history of malignant neoplasm of breast

== ENCOUNTER 2021-08-26 09:31 | Outpatient (CLI) | payer MEDICARE, OTHER ==
[2021-08-26 15:50] LABS: THYROID STIMULATING HORMONE 0.14 uIU/mL (0.34-5.60)
[2021-08-26 15:52] LABS: FREE T3 3.36 pg/mL (2.5-3.9); FREE T4 (FREE THYROXINE) 1.19 ng/dL (0.58-1.64)
== END 2021-08-26 09:32 | disposition home or self-care (01) ==
LOC: LAB.S 09:31
PROVIDERS: ATTEND Registered Nurse
DX: E03.9 Hypothyroidism, unspecified (principal)
CPT/HCPCS: 36415; 84439; 84443; 84481

== ENCOUNTER 2021-09-07 14:03 | Outpatient (CLI) | payer MEDICARE, OTHER | END 2021-09-07 14:04 | disposition home or self-care (01) | LOC: LAB.S 14:03 | PROVIDERS: ATTEND Registered Nurse | DX: E03.9 Hypothyroidism, unspecified (principal) | CPT/HCPCS: 36415; 84443 ==

== ENCOUNTER 2022-07-15 16:02 | Outpatient (CLI) | payer MEDICARE, OTHER | END 2022-07-15 16:03 | disposition critical access hospital (66) | LOC: EMS 16:02 | DX: M25.511 Pain in right shoulder (principal); W01.0XXA Fall on same level from slipping, tripping and stumbling without subsequent striking against object, initial encounter; Y92.009 Unspecified place in unspecified non-institutional (private) residence as the place of occurrence of the external cause | CPT/HCPCS: A0425; A0427 ==

== ENCOUNTER 2022-07-15 16:25 | Emergency (ER) | payer MEDICARE, OTHER ==
[2022-07-15] MEDS ORDERED: ONDANSETRON 4 MG/2 ML VIAL IVP STA (16:30)
--- NOTE | 2022-07-15 16:34 | ED Physician Documentation ---
PD HPI UPPER EXT INJURY - Stated complaint Stated Complaint: GLF/R SHOULDER PX - History obtained from History obtained from: Patient, EMS - History of Present Illness Location: Right, Shoulder Type of injury: Fall Where injury occurred: Home Timing - onset: How many hours ago (2) Timing - duration: Hours (2) Timing - details: Abrupt onset Pain level max: 9 Pain level now: 5 Improved by: Rest Worsened by: Moving, Palpating Associated symptoms: Swelling. No: Weakness, Numbness, Tingling, Discolored Recently seen: Not recently seen - Additonal information Additional information: Patient is a 77-year-old female who was at home today when she fell on the right shoulder causing right shoulder pain. She was given 150 mcg of IV fentanyl with EMS. No gross deformity per EMS. Review of Systems Constitutional: denies: Fever, Chills GI: denies: Vomiting, Diarrhea Skin: denies: Rash Musculoskeletal: denies: Neck pain, Back pain Neurologic: denies: Headache PD PAST MEDICAL HISTORY - Past Medical History Cardiovascular: None Respiratory: None Endocrine/Autoimmune: HyPOthyroidism GI: GERD, Other : Other HEENT: Chronic vision loss Psych: Panic attacks Musculoskeletal: Osteoarthritis, Osteoporosis Derm: Rosacea - Past Surgical History Past Surgical History: Yes General: Colonoscopy, EGD HEENT: Tonsil/Adenoidectomy - Present Medications Home Medications: Ambulatory Orders Medication Instructions Recorded Confirmed Levothyroxine Sodium 100 mcg PO DAILY 09/25/12 12/12/18 Cholecalciferol (Vitamin D3) unit PO 01/11/18 [Vitamin D3] Bioadrine 12/12/18 Iodine Synergy 12/12/18 Femvar 01/08/20 Prasterone (Dhea)/Calcium Carb 1 tab PO DAILY PM 01/08/20 01/08/20 [Dhea 10 mg Tablet] Ondansetron Odt [Zofran] 4 mg TL Q6H PRN #10 tablet 07/15/22 Oxycodone HCl/Acetaminophen 1 - 2 each PO Q6H PRN #14 tablet 07/15/22 [Percocet 5-325 mg Tablet] MDD 6 tabs - Allergies Allergies/Adverse Reactions: Allergies Allergy/AdvReac Type Severity Reaction Status Date / Time Penicillins Allergy Mild Hives Verified 07/15/22 16:39 Sulfa (Sulfonamide Allergy Mild Rash Verified 01/08/20 13:46 Antibiotics) - Social History Does the pt smoke?: No Smoking Status: Never smoker Does the pt drink ETOH?: No Does the pt have substance abuse?: No - Immunizations Immunizations are current?: No Immunizations: TDAP >10years/unknown - POLST Patient has POLST: No PD ED PE NORMAL - Vitals Vital signs reviewed: Yes - General General: Alert and oriented X 3, No acute distress - HEENT HEENT: PERRL, Moist mucous membranes - Neck Neck: Supple, no meningeal sign, No bony TTP - Cardiac Cardiac: RRR, Strong equal pulses - Respiratory Respiratory: No respiratory distress, Clear bilaterally - Abdomen Abdomen: Soft, Non tender, Non distended - Back Back: No spinal TTP - Derm Derm: Warm and dry - Extremities Extremities: Other (R shoulder. TTP over the glenohumeral joint. NVI. Limited range of motion secondary to pain) - Neuro Neuro: Alert and oriented X 3, thermoforming operator 2-12 intact, No motor deficit, No sensory deficit, Normal speech Eye Opening: Spontaneous Motor: Obeys Commands Verbal: Oriented GCS Score: 15 - Psych Psych: Normal mood, Normal affect Results - Vitals Vitals: Vital Signs - 24 hr 07/15/22 07/15/22 07/15/22 16:32 17:28 18:17 Temperature 36.7 C Heart Rate 56 L 68 71 Respiratory 16 16 18 Rate Blood Pressure 155/56 H 155/55 H 147/69 H O2 Saturation 94 98 98 Oxygen O2 Source Room air - Rads (name of study) R shoulder xray Relevant Findings:: Final report received, See rad report PD Medical Decision Making - ED course Complexity details: reviewed results, re-evaluated patient, considered differential, d/w patient, d/w desktop support consultant ED course: 77-year-old female status post ground-level fall landing on the right shoulder. She has a comminuted proximal humerus fracture. Discussed the case with Dr. Queen, orthopedics on-call. Placed in a sling and swath. Pain well controlled. Neurovascular intact. Patient will follow-up in the office for further care. Patient was given IV Dilaudid and IV Zofran here. Ambulating without difficulty. No other acute injuries. Patient counseled regarding signs and symptoms for which I believe and urgent re-evaluation would be necessary. Patient with good understanding of and agreement to plan and is comfortable going home at this time This document was made in part using voice recognition software. While efforts are made to proofread this document, sound alike and grammatical errors may occur. Departure - Departure Disposition: 01 Home, Self Care Clinical Impression: Proximal humeral fracture Qualifiers: Encounter type: initial encounter Fracture type: closed Fracture morphology: unspecified fracture morphology Laterality: right Qualified Code(s): S42.201A - Unspecified fracture of upper end of right humerus, initial encounter for closed fracture Condition: Good Instructions: ED Fx Upper Ext Follow-Up: Kassy Green ARNP [Primary Care Provider] - [facility] [Provider Group] - Within 1 week Prescriptions: Oxycodone HCl/Acetaminophen [Percocet 5-325 mg Tablet] 1 - 2 each PO Q6H PRN #14 tablet MDD 6 tabs PRN Reason: pain Ondansetron Odt [Zofran] 4 mg TL Q6H PRN #10 tablet PRN Reason: Nausea / Vomiting Comments: Please follow-up with orthopedics for further care. Please call the office on Sunday for an appointment. Please stay in the sling and swath until released by orthopedics. Your prescription was sent to [facility] in [place]. I am prescribing a short course of narcotic pain medication for you. These are potentially dangerous and addictive medications that should be used carefully. These medications may constipate you. Take an [id number] stool softener (docusate) twice daily with plenty of water while taking these medications. If you go 24 hours without a bowel movement, take [id number] miralax, per package instructions. Do not drink or drive while taking these medications. If you received narcotic or sedating medications while in the emergency department, do not drive for 24 hours. Store this medication in a safe, secure place and out of reach of children. It is a violation of federal law to give or sell this medication to another person or to use in a manner other than prescribed. The ED will not refill narcotic prescriptions, including prescriptions lost or stolen. To dispose of unwanted medications: 1. [facility] [address] in [place] has a medication drop box. They accept prescription medications (in pill form) Sunday through Sunday 9:00 a.m. to 5:00 p.m. 2. The [facility] accepts prescription medications (in pill form only) for disposal year round. Call for more information. 3. Contact the [facility] for the next [facility] sponsored prescription drug collection event. , [phone], or [phone]; FINDINGS: Bones: Comminuted fractures through the greater tuberosity possibly involving the lesser tuberosity as well. Transverse extension across the anatomic neck of the humerus. Fracture involves the glenohumeral joint space. No suspicious bony lesions. Visualized ribs appear intact. Soft tissues: No suspicious soft tissue calcifications. IMPRESSION: Comminuted proximal humeral fracture involving the greater tuberosity. Discharge Date/Time: 07/15/22 18:20
[2022-07-15] MEDS ORDERED: HYDROmorphone 1 MG/ML CARPUJECT IVP STA (17:22)
--- NOTE | 2022-07-15 17:32 | XRAY Report ---
PROCEDURE: Shoulder 3 View RT INDICATIONS: R shoulder pain s/p GLF TECHNIQUE: 3 views of the shoulder were acquired. COMPARISON: None. FINDINGS: Bones: Comminuted fractures through the greater tuberosity possibly involving the lesser tuberosity a s well. Transverse extension across the anatomic neck of the humerus. Fracture involves the glenohume ral joint space. No suspicious bony lesions. Visualized ribs appear intact. Soft tissues: No suspicious soft tissue calcifications. IMPRESSION: Comminuted proximal humeral fracture involving the greater tuberosity. Reviewed by: Luis Fernando Perdue MD on 07/15/2022 4:31 PM MIKAL Approved by: Luis Fernando Perdue MD on 07/15/2022 4:31 PM MIKAL Station ID: [id number]
[2022-07-15] MEDS ORDERED: oxyCODONE/ACET 5/325 Prepack 4 PO STA (17:49)
[2022-07-15] MEDS ORDERED: ONDANSETRON ODT 4 MG Prepack 2 TL PRN (17:49)
[2022-07-15 18:17] VITALS: BP 147/69
== END 2022-07-15 18:20 | disposition home or self-care (01) ==
LOC: EDUNIT# → ED 16:25 → SUPCPDRO 16:25 → ED 18:20
DX: S42.251A Displaced fracture of greater tuberosity of right humerus, initial encounter for closed fracture (principal); W19.XXXA Unspecified fall, initial encounter; Y92.009 Unspecified place in unspecified non-institutional (private) residence as the place of occurrence of the external cause
CPT/HCPCS: 73030; 96374; 96375; 99283; 99284; J1170

== ENCOUNTER 2022-07-24 08:00 | Outpatient (CLI) | payer MEDICARE, OTHER ==
--- NOTE | 2022-07-24 16:14 | XRAY Report ---
PROCEDURE: Shoulder 3 View RT INDICATIONS: RIGHT SHOULDER FRACTURE TECHNIQUE: 4 views of the shoulder were acquired. COMPARISON: 07/15/2022 plain films FINDINGS: Bones: Increased, moderate to severe displacement of the comminuted proximal humeral fracture. No radha picious bony lesions. Visualized ribs appear intact. Soft tissues: No suspicious soft tissue calcifications. IMPRESSION: Increased displacement of proximal humeral fracture. Reviewed by: Vicente Bassett MD on 07/24/2022 4:12 PM PDT Approved by: Vicente Bassett MD on 07/24/2022 4:12 PM PDT Station ID: [id number]
== END 2022-07-24 23:59 | disposition home or self-care (01) ==
LOC: DI.WOS 08:00
PROVIDERS: ATTEND Orthopaedic Surgery
DX: S42.201A Unspecified fracture of upper end of right humerus, initial encounter for closed fracture (principal)

== ENCOUNTER 2022-07-31 13:35 | Outpatient (CLI) | payer MEDICARE, OTHER ==
--- NOTE | 2022-07-31 13:53 | XRAY Report ---
PROCEDURE: Shoulder 3 View RT INDICATIONS: RIGHT SHOULDER FRACTURE TECHNIQUE: 3 views of the shoulder were acquired. COMPARISON: X-ray shoulder 07/24/2022 FINDINGS: Bones: There is a comminuted fracture within the humeral head including the greater and lesser tubero sities. Fracture also extends to the anatomic neck of the humerus extending into the glenohumeral naya nt space. Overall alignment is stable.. No suspicious bony lesions. Visualized ribs appear intact. Soft tissues: No suspicious soft tissue calcifications. IMPRESSION: Stable appearance of comminuted and displaced humeral head and neck fractures. Reviewed by: Michelle Gomes MD on 07/31/2022 1:52 PM PDT Approved by: Michelle Gomes MD on 07/31/2022 1:52 PM PDT Station ID: [id number]
== END 2022-07-31 13:36 | disposition home or self-care (01) ==
LOC: DI.WOS 13:35
PROVIDERS: ATTEND Orthopaedic Surgery
DX: S42.231A 3-part fracture of surgical neck of right humerus, initial encounter for closed fracture (principal)

== ENCOUNTER 2022-08-03 14:38 | Outpatient (CLI) | payer MEDICARE, OTHER ==
--- NOTE | 2022-08-04 07:07 | CT Report ---
PROCEDURE: UPPER EXTREMITY WO - RT INDICATIONS: FRACTURE OF RIGHT HUMERUS TECHNIQUE: Noncontrast 2 mm axial sections were acquired through the elbow joint, with coronal and sagittal refo rmats. For radiation dose reduction, the following was used: automated exposure control, adjustment of mA and/or kV according to patient size. COMPARISON: Right shoulder radiographs 07/31/2022 FINDINGS: Image quality: Excellent. Bones: There is a comminuted displaced fracture of the proximal humeral head and neck as seen on michelle or radiographs. Humeral shaft component is displaced approximately 1.3 cm anteromedially and mildly i mpacted. The proximal shaft fragment abuts the undersurface of the glenoid. Lesser tuberosity fractur e fragment is displaced medially by approximately 1.2 cm. The greater tuberosity fracture fragment is minimally displaced. The humeral head is mildly rotated. No definite fracture line is seen extending to the articular surface. Periosteal new bone formation is seen, compatible with mild healing change s. Mild degenerative changes are seen at the acromioclavicular joint. The included ribs are intact. Soft tissues: There is a moderate glenohumeral effusion. No significant rotator cuff muscle atrophy. The tendons, ligaments, articular cartilages, labrum are not well evaluated with standard CT. The in cluded right lung is clear. IMPRESSION: Comminuted impacted fracture of the proximal humeral head and neck with medial displacem ent of the humeral shaft and lesser tuberosity components. Mild healing changes are present. Reviewed by: Sander Rahman MD on 08/03/2022 4:12 PM PDT Approved by: Sander Rahman MD on 08/03/2022 4:12 PM PDT Station ID: [id number]
== END 2022-08-03 14:39 | disposition home or self-care (01) ==
LOC: DI 14:38
PROVIDERS: ATTEND Orthopaedic Surgery
DX: S42.231D 3-part fracture of surgical neck of right humerus, subsequent encounter for fracture with routine healing (principal)

== ENCOUNTER 2022-08-18 14:33 | Outpatient (CLI) | payer MEDICARE, OTHER ==
[2022-08-18 16:06] LABS: INR 0.9 (0.8-1.2); PT - PROTHROMBIN TIME 10.4 secs (9.9-12.6)
[2022-08-18 16:13] LABS: PARTIAL THROMBOPLASTIN TIME 25.8 secs (24.9-33.3)
== END 2022-08-18 14:34 | disposition home or self-care (01) ==
LOC: RT 14:33 → LAB 14:34
PROVIDERS: ATTEND Orthopaedic Surgery
DX: Z01.818 Encounter for other preprocedural examination (principal); M25.519 Pain in unspecified shoulder; Z98.890 Other specified postprocedural states; S42.291A Other displaced fracture of upper end of right humerus, initial encounter for closed fracture
CPT/HCPCS: 36415; 81599; 85610; 85730; 87081; 93005

== ENCOUNTER 2023-05-02 13:28 | Outpatient (CLI) | payer MEDICARE, OTHER ==
--- NOTE | 2023-05-02 16:49 | Mammography Report ---
BILATERAL DIGITAL SCREENING MAMMOGRAM 3D/2D: 05/02/2023 CLINICAL: Routine screening. Comparison is made to exams dated: 08/24/2020 mammogram, 06/25/2018 mammogram, and 02/07/2017 mammogra m - [facility]. Both breasts are heterogeneously dense, which may obscure small masses (category c / 51-75% glandular tissue). There are benign calcifications in both breasts. No significant masses, calcifications, or other findings are seen in either breast. There has been no significant interval change. IMPRESSION: BENIGN There is no mammographic evidence of malignancy. A 1 year screening mammogram is recommended. Based on the Tyrer Cuzick model (a risk assessment model) the patients lifetime risk is 4.6% and her 10 year risk is 0.0%. According to the ACR, ACS, and NCCN guidelines, an annual breast MRI exam hanna g with mammogram is recommended if the patients lifetime risk is 20% or greater. This exam was interpreted at Station ID: [id number]. NOTE: For mammograms, a report in lay terms will be sent to the patient. Approximately 15% of breast malignancies will not be visualized mammographically. In the management of a palpable breast mass, a negative mammogram must not discourage biopsy of a clinically suspicious lesion. Electronically Signed By: Kaci wright/dayna:05/02/2023 14:58:26 ACR BI-RADS Category 2: Benign Finding(s) 3342F PARENCHYMAL PATTERN: (D) - The breast(s) demonstrate(s) heterogeneously dense fibroglandular tammie bansal. BI-RADS CATEGORY: (2) - 2 Mammogram [id number] 1 year screening LATERALITY: (B)
== END 2023-05-02 13:29 | disposition home or self-care (01) ==
LOC: DI 13:28
PROVIDERS: ATTEND Registered Nurse
DX: Z12.31 Encounter for screening mammogram for malignant neoplasm of breast (principal); R92.333 Mammographic heterogeneous density, bilateral breasts

== ENCOUNTER 2023-05-02 13:31 | Outpatient (CLI) | payer MEDICARE, OTHER ==
--- NOTE | 2023-05-02 16:29 | DEXA Report ---
PROCEDURE: Dexa Spine and/or Hip INDICATIONS: OSTEOPOROSIS TECHNIQUE: Dual energy x-ray absorptiometry (DXA) was performed on a [employer]. Regions measur ed are the AP Spine, femoral neck, and if needed forearm. COMPARISON: DEXA 321 FINDINGS: Lumbar Spine: Bone Mineral Density 0.818 g/cm/cm,T score -3.0, unchanged. Left Femoral Neck: Bone Mineral Density 0.667 g/cm/cm, T score -2.7, compared to -2.6. Left Hip: Bone Mineral Density 0.705 g/cm/cm,T score -2.4, compared to -2.2. (T score greater or equal to -1.0: NORMAL) (T score from -1.1 to -2.4: OSTEOPENIA) (T score less than or equal to -2.5 to: OSTEOPOROSIS) Impression: By WHO criteria, this patient has osteoporosis in the left femoral neck minimally progressive. Severe osteopenia in the left hip is present minimally progressive. Patients with diagnosis of osteoporosis or osteopenia should have regular bone mineral density assess ment. For those eligible for Medicare, routine testing is allowed once every 2 years. Testing frequ ency can be increased for patients who have rapidly progressing disease or for those who are receivin g medical therapy to restore bone mass. Reviewed by: Michelle Gomes MD on 05/02/2023 4:27 PM PST Approved by: Michelle Gomes MD on 05/02/2023 4:27 PM PST Station ID: [id number]
== END 2023-05-02 13:32 | disposition home or self-care (01) ==
LOC: DI 13:31
PROVIDERS: ATTEND Registered Nurse
DX: M81.0 Age-related osteoporosis without current pathological fracture (principal)

== ENCOUNTER 2023-06-29 12:32 | Outpatient (CLI) | payer MEDICARE, OTHER | END 2023-06-29 12:33 | disposition home or self-care (01) | LOC: DI 12:32 | PROVIDERS: ATTEND Registered Nurse | DX: R01.1 Cardiac murmur, unspecified (principal); I35.0 Nonrheumatic aortic (valve) stenosis | CPT/HCPCS: 93307 ==

== ENCOUNTER 2023-07-10 11:25 | Day surgery (SDC) | payer MEDICARE, OTHER ==
[2023-07-10] MEDS: LACTATED RINGERS 1,000 ML IV ONE (11:30)
[2023-07-10] MEDS ORDERED: PROPOFOL 500 MG/50 ML 0 MG/0 ML VIAL ONE (11:55)
[2023-07-10] MEDS ORDERED: PROPOFOL 200 MG/20 ML VIAL IVP ONE (12:07)
[2023-07-10] MEDS ORDERED: LIDOCAINE-MPF 2% 5 ML VIAL ONE (12:07)
--- NOTE | 2023-07-10 12:30 | ANESTHESIA ---
Pre-Anesthesia VS, & Labs - Diagnosis SCREENING; HX OF bARRETS - Procedure EGD Vital Signs: Temp Pulse Resp BP Pulse Ox O2 Flow Rate 36.2 C L 73 16 189/86 H 100 0 07/10/23 11:45 07/10/23 11:45 07/10/23 11:45 07/10/23 11:45 07/10/23 11:45 07/10/23 11:45 Height: 5 ft 4 in Weight (kg): 62 kg Body Mass Index: 23.4 BMI Classification: Normal - NPO >8 hours Last Fluid Intake: 0130 - Is Patient ?: No Home Medications and Allergies Home Medications: Ambulatory Orders Calcium Carbonate 2 tab PO DAILY 07/03/23 Cholecalciferol [Vitamin D3] 50 mcg PO DAILY 07/03/23 Cyanocobalamin [Vitamin B-12] 1,000 mcg PO DAILY 07/03/23 Epa-Dha Fish Oil 2 cap PO DAILY 07/03/23 Losartan Potassium 100 mg PO QPM 07/03/23 Macular Complete Protect 4 tab PO DAILY 07/03/23 Prasterone (Dhea)/Calcium Carb [Dhea 10 mg Tablet] 20 mg PO DAILY 07/03/23 flaxseed oiL [Flaxseed Oil] 500 mg PO DAILY 07/03/23 Levothyroxine [Synthroid] 75 mcg PO QDAC 08/01/22 Liothyronine [Cytomel] 5 mcg PO QDAC 08/01/22 Meclizine [Antivert] 12.5 mg PO Q6H PRN 08/01/22 Calcium Carbonate 2 tab PO DAILY 07/03/23 Cholecalciferol [Vitamin D3] 50 mcg PO DAILY 07/03/23 Cyanocobalamin [Vitamin B-12] 1,000 mcg PO DAILY 07/03/23 Epa-Dha Fish Oil 2 cap PO DAILY 07/03/23 Losartan Potassium 100 mg PO QPM 07/03/23 Macular Complete Protect 4 tab PO DAILY 07/03/23 Prasterone (Dhea)/Calcium Carb [Dhea 10 mg Tablet] 20 mg PO DAILY 07/03/23 flaxseed oiL [Flaxseed Oil] 500 mg PO DAILY 07/03/23 Allergies/Adverse Reactions: Allergies Allergy/AdvReac Type Severity Reaction Status Date / Time Penicillins Allergy Mild Hives Verified 07/15/22 16:39 Sulfa (Sulfonamide Allergy Mild Rash Verified 01/08/20 13:46 Antibiotics) Anes History & Medical History - Anesthetic History Anesthesia Complications: reports: No previous complications Family history of Anesthesia Complications: Denies - Medical History Cardiovascular: reports: Hypertension (TAKES LOSARTAN; LAST ON 06/09 EVENING, B/P 189/86-173/77), Murmur (RECENT ECHO, MILD , VALVE AREA 1.5 CM, MPG 18, DENIES CP/SOB, DOESNT LIMIT ACTIVITY) Pulmonary: reports: None Gastrointestinal: reports: GERD (HX BARRETTS), Other Urinary: reports: Other Musculoskeletal: reports: Osteoarthritis, Osteoporosis Endocrine/Autoimmune: reports: HyPOthyroidism Skin: reports: Rosacea Smoking Status: Never smoker Psychosocial: reports: No issues indicated - Surgical History General: reports: Colonoscopy, EGD Eyes Ears Nose Throat (EENT): reports: Tonsil/Adenoidectomy Orthopedic: reports: Other Results - Echo Results Echo Results: Report reviewed Exam General: Alert Dental: WNL Mouth Openin Fingerbreadth Neck Mobility: Normal Mallampati classification: II Thyromental Distance: less than 4 cm Plan Anesthesia Type: Total IV Consent for Procedure(s) Verified and Reviewed: Yes Code Status: Attempt Resuscitation ASA classification: 3-Severe systemic disease Is this case an emergency?: No
[2023-07-10] MEDS: LACTATED RINGERS 500 ML IV ONE ×2 (13:01→13:53)
[2023-07-10 13:27] VITALS: O2SAT 100
[2023-07-10 13:37] VITALS: BP 161/69
--- NOTE | 2023-07-10 15:03 | ANESTHESIA POST OP EVALUATION ---
Anesthesia Post Eval - Post Anesthesia Eval Vitals: Last Vital Signs Temp 36.3 C L 07/10/23 13:27 Pulse 69 07/10/23 13:27 Resp 16 07/10/23 13:27 BP 161/69 H 07/10/23 13:27 Pulse Ox 100 07/10/23 13:27 O2 Flow Rate 0 07/10/23 11:45 CV Function Including HR & BP: Stable Pain Control: Satisfactory Nausea & Vomiting: Negative Mental Status: Baseline Respiratory Status: Airway Patent Hydration Status: Satisfactory Anesthesia Complications: None
== END 2023-07-10 11:26 | disposition home or self-care (01) ==
LOC: SDS 11:25
PROVIDERS: ATTEND Surgery
PROC: 0DB78ZX Excision of Stomach, Pylorus, Via Natural or Artificial Opening Endoscopic, Diagnostic (ICD-10-PCS; 2023-07-10)
PROC: 0DB48ZX Excision of Esophagogastric Junction, Via Natural or Artificial Opening Endoscopic, Diagnostic (ICD-10-PCS; principal; 2023-07-10 13:00)
DX: K21.9 Gastro-esophageal reflux disease without esophagitis (principal); K22.70 Barrett's esophagus without dysplasia; K44.9 Diaphragmatic hernia without obstruction or gangrene; I10 Essential (primary) hypertension; F41.9 Anxiety disorder, unspecified; E03.9 Hypothyroidism, unspecified; D64.9 Anemia, unspecified
CPT/HCPCS: 43239; J7120

== ENCOUNTER 2023-09-11 08:00 | Outpatient (CLI) | payer MEDICARE, OTHER | END 2023-09-11 23:59 | disposition home or self-care (01) | LOC: LAB.N 08:00 | PROVIDERS: ATTEND Registered Nurse | DX: R31.9 Hematuria, unspecified (principal); R30.0 Dysuria | CPT/HCPCS: 87086 ==

== ENCOUNTER 2023-09-12 07:48 | Outpatient (CLI) | payer MEDICARE, OTHER ==
[2023-09-12 15:38] LABS: BASOPHILS % (AUTO) 0.2 %; HCT - HEMATOCRIT 34.7 % (37.0-47.0); HGB - HEMOGLOBIN 12.3 g/dL (12.0-16.0); LYMPHOCYTES # (AUTO) 0.9 10^3/uL (1.5-3.5); LYMPHOCYTES % (AUTO) 16.8 %; MEAN CORPUSCULAR HEMOGLOBIN 30.1 pg (27.0-31.0); MEAN CORPUSCULAR HGB CONC 35.4 g/dL (32.0-36.0); MEAN PLATELET VOLUME 8.9 fL (7.9-10.8); MONOCYTES # (AUTO) 0.4 10^3/uL (0.0-1.0); MONOCYTES % (AUTO) 7.1 %; NEUTROPHILS # (AUTO) 4.2 10^3/uL (1.5-6.6); NEUTROPHILS % (AUTO) 75.5 %; PLT - PLATELET COUNT 319 10^3/uL (130-450); RED BLOOD COUNT 4.08 10^6/uL (4.20-5.40); RED CELL DISTRIBUTION WIDTH 11.9 % (12.0-15.0); WHITE BLOOD COUNT 5.5 x10^3/uL (4.8-10.8)
[2023-09-12 16:33] LABS: ALBUMIN 4.5 g/dL (3.2-5.5); ALBUMIN/GLOBULIN RATIO 1.7 (1.0-2.2); BILIRUBIN,TOTAL 0.9 mg/dL (0.2-1.0); CALCIUM 9.8 mg/dL (8.5-10.3); CREATININE 0.7 mg/dL (0.6-1.3); POTASSIUM 4.2 mmol/L (3.5-4.5); TOTAL PROTEIN 7.2 g/dL (6.4-8.9)
== END 2023-09-12 07:49 | disposition home or self-care (01) ==
LOC: LAB.S 07:48
PROVIDERS: ATTEND Registered Nurse
DX: R31.9 Hematuria, unspecified (principal); R82.4 Acetonuria; Z86.2 Personal history of diseases of the blood and blood-forming organs and certain disorders involving the immune mechanism
CPT/HCPCS: 36415; 80053; 85025

== ENCOUNTER 2023-09-12 17:26 | Inpatient (IN) | payer MEDICARE, OTHER ==
[2023-09-12] MEDS: SODIUM CHLORIDE 3% HYPERTONIC 50 ML IV SCH (18:57)
[2023-09-12 19:22] LABS: MAGNESIUM 1.6 mg/dL (1.7-2.3)
[2023-09-12 19:31] LABS: EOSINOPHILS % (AUTO) 0.1 %; HCT - HEMATOCRIT 33.8 % (37.0-47.0); HGB - HEMOGLOBIN 12.3 g/dL (12.0-16.0); LYMPHOCYTES # (AUTO) 1.4 10^3/uL (1.5-3.5); LYMPHOCYTES % (AUTO) 21.1 %; MEAN CORPUSCULAR HEMOGLOBIN 30.2 pg (27.0-31.0); MEAN CORPUSCULAR HGB CONC 36.4 g/dL (32.0-36.0); MEAN PLATELET VOLUME 8.6 fL (7.9-10.8); MONOCYTES # (AUTO) 0.9 10^3/uL (0.0-1.0); MONOCYTES % (AUTO) 13.2 %; NEUTROPHILS # (AUTO) 4.5 10^3/uL (1.5-6.6); NEUTROPHILS % (AUTO) 65.5 %; PLT - PLATELET COUNT 337 10^3/uL (130-450); RED BLOOD COUNT 4.07 10^6/uL (4.20-5.40); RED CELL DISTRIBUTION WIDTH 11.7 % (12.0-15.0); WHITE BLOOD COUNT 6.8 x10^3/uL (4.8-10.8)
[2023-09-12 19:32] LABS: ALBUMIN 4.5 g/dL (3.2-5.5); ALBUMIN/GLOBULIN RATIO 1.9 (1.0-2.2); BILIRUBIN,TOTAL 0.7 mg/dL (0.2-1.0); CALCIUM 9.8 mg/dL (8.5-10.3); CREATININE 0.8 mg/dL (0.6-1.3); POTASSIUM 4.3 mmol/L (3.5-4.5); TOTAL PROTEIN 6.9 g/dL (6.4-8.9)
[2023-09-12] MEDS: ACETAMINOPHEN 325 MG TABLET PO STA (19:37)
--- NOTE | 2023-09-12 19:52 | ED Physician Documentation ---
History of Present Illness - Stated complaint Stated Complaint: ABNORMAL LABS - Chief complaint Chief Complaint: General - Additonal information Additional information: 78-year-old female with history of hypothyroidism, GERD, osteoarthritis, osteoporosis presents emergency department for hyponatremia. Patient was recently seen by her primary care provider 2 days ago was started on cefdinir for urinary tract infection. Patient reports that she has been taking these medications as prescribed she went in for lab check and was found to be quite hyponatremic in the lab today at 113. They sent her to the emergency department for further evaluation. Patient denies any confusion or lethargy she says she actually has a hard time sleeping. She does endorse an significant dizziness and vertigo symptoms. PD PAST MEDICAL HISTORY - Past Medical History Past Medical History: Yes Cardiovascular: None Respiratory: None Endocrine/Autoimmune: HyPOthyroidism GI: GERD, Other : Other HEENT: Chronic vision loss Psych: Panic attacks Musculoskeletal: Osteoarthritis, Osteoporosis Derm: Rosacea - Past Surgical History Past Surgical History: Yes General: Colonoscopy, EGD Ortho: Other HEENT: Tonsil/Adenoidectomy - Present Medications Home Medications: Ambulatory Orders Medication Instructions Recorded Confirmed Levothyroxine [Synthroid] 75 mcg PO QDAC 08/01/22 07/10/23 Liothyronine [Cytomel] 5 mcg PO QDAC 08/01/22 07/10/23 Meclizine [Antivert] 12.5 mg PO Q6H PRN 08/01/22 07/10/23 Calcium Carbonate 2 tab PO DAILY 07/03/23 07/10/23 Cholecalciferol [Vitamin D3] 50 mcg PO DAILY 07/03/23 07/10/23 Cyanocobalamin [Vitamin B-12] 1,000 mcg PO DAILY 07/03/23 07/10/23 Epa-Dha Fish Oil 2 cap PO DAILY 07/03/23 07/10/23 Losartan Potassium 100 mg PO QPM 07/03/23 07/10/23 Macular Complete Protect 4 tab PO DAILY 07/03/23 07/10/23 Prasterone (Dhea)/Calcium Carb 20 mg PO DAILY 07/03/23 07/10/23 [Dhea 10 mg Tablet] flaxseed oiL [Flaxseed Oil] 500 mg PO DAILY 07/03/23 07/10/23 - Allergies Allergies/Adverse Reactions: Allergies Allergy/AdvReac Type Severity Reaction Status Date / Time Penicillins Allergy Mild Hives Verified 09/12/23 17:30 Sulfa (Sulfonamide Allergy Mild Rash Verified 09/12/23 17:30 Antibiotics) - Social History Does the pt smoke?: No Smoking Status: Never smoker Does the pt drink ETOH?: No Does the pt have substance abuse?: No - Immunizations Immunizations are current?: No Immunizations: TDAP >10years/unknown - POLST Patient has POLST: No PD ED PE NORMAL - Vitals Vital signs reviewed: Yes - General General: Alert and oriented X 3, No acute distress, Well developed/nourished - HEENT HEENT: Atraumatic, PERRL - Cardiac Cardiac: RRR - Respiratory Respiratory: No respiratory distress, Clear bilaterally - Abdomen Abdomen: Normal bowel sounds, Soft, Non tender, No organomegaly - Derm Derm: Normal color, Warm and dry, No rash - Extremities Extremities: No deformity, No edema, No calf tenderness / cord - Neuro Neuro: Alert and oriented X 3, bass fisher 2-12 intact, No motor deficit, No sensory deficit, Normal speech - Psych Psych: Normal mood Results - Vitals Vitals: Vital Signs - 24 hr 09/12/23 09/12/23 09/12/23 17:30 19:00 21:00 Temperature 36.8 C Heart Rate 90 84 80 Respiratory 16 16 18 Rate Blood Pressure 160/83 H 171/76 H 165/79 H O2 Saturation 100 98 98 Oxygen O2 Source Room air - Labs Labs: Laboratory Tests 09/12/23 09/12/23 18:50 18:50 WBC 6.8 RBC 4.07 L Hgb 12.3 Hct 33.8 L MCV 83.0 MCH 30.2 MCHC 36.4 H RDW 11.7 L Plt Count 337 MPV 8.6 Neut # (Auto) 4.5 Lymph # (Auto) 1.4 L Dickinson # (Auto) 0.9 Eos # (Auto) 0.0 Baso # (Auto) 0.0 Absolute Nucleated RBC 0.00 Nucleated RBC % 0.0 Sodium 112 L* Potassium 4.3 Chloride 79 L* Carbon Dioxide 25 Anion Gap 8.0 BUN 18 Creatinine 0.8 Estimated GFR (MDRD) 69 L Glucose 121 H Calcium 9.8 Magnesium 1.6 L Total Bilirubin 0.7 AST 23 ALT 16 Alkaline Phosphatase 68 Total Protein 6.9 Albumin 4.5 Globulin 2.4 Albumin/Globulin Ratio 1.9 Lipase 61 PD Medical Decision Making - ED course ED course: 78 yo female here for hyponatemia, Lab this am was Na of 113, repeat Na 112. No confusion but does endorse in dizziness. Pt was recently started on cefdinir for UTI two days ago. She is also on hydrochlorothiazide which most likely the cause of the hyponatremia. She was given 50mL hypotonic normal saline in the ER. Report given to Dr. Akins, tele hospitalist who will accept the Pt for further hospitalization. Departure - Departure Disposition: [facility] DC/Xfer Discharge Date/Time: 09/12/23 22:56
[2023-09-12] MEDS ORDERED: SODIUM CHLORIDE FLUSH 0.9% 10 ML SYRINGE IVP PRN (21:56)
[2023-09-12] MEDS ORDERED: ACETAMINOPHEN 325 MG TABLET PO PRN (21:56)
[2023-09-12] MEDS ORDERED: ONDANSETRON 4 MG/2 ML VIAL IVP PRN (21:56)
--- NOTE | 2023-09-12 22:05 | HISTORY & PHYSICAL EXAMINATION ---
Chief Complaint - Chief Complaint Chief Complaint: low Na History of Present Illness - History of Present Illness HPI Comment/Other: pt presented to hospital d/t Na levels initially 109 at urgent care center. she was seen there about 2 days ago d/t symptoms of uti, and she prescribed antibiotic, and she also states she would drink more water than usual to help "flush it out." she would drink about 6 oz water every hour. additionally, she was recently diagnosed with htn, and was rx'd losartan. d/t bp concerns, pt states she has been intentionally reducing her Na intake. as a f/u to her uti appt, lab work was done, and she was called today d/t come to hospital d/t Na levels reportedly 109. she states she has had h/o low Na in the past, treated successfully with IVF. no fevers, chills, chest pain, sob. no LOZA. no confusion. she has h/o bppv for more than a year. no falls. denies any further dysuria. no hematuria. no diarrhea. she has been eating normally but eating less salt. History - Past Medical History Cardiovascular: reports: None Respiratory: reports: None Endocrine/Autoimmune: reports: HyPOthyroidism GI: reports: GERD, Other : reports: Other HEENT: reports: Chronic vision loss Psych: reports: Panic attacks Musculoskeletal: reports: Osteoarthritis, Osteoporosis Derm: reports: Rosacea MRSA Hx?: No - Past Surgical History General: reports: Colonoscopy, EGD Ortho: reports: Other HEENT: reports: Tonsil/Adenoidectomy - POLST Patient has POLST: No Meds/Allgy - Home Medications Home Medications: Ambulatory Orders Medication Instructions Recorded Confirmed Levothyroxine [Synthroid] 75 mcg PO QDAC 08/01/22 07/10/23 Liothyronine [Cytomel] 5 mcg PO QDAC 08/01/22 07/10/23 Meclizine [Antivert] 12.5 mg PO Q6H PRN 08/01/22 07/10/23 Calcium Carbonate 2 tab PO DAILY 07/03/23 07/10/23 Cholecalciferol [Vitamin D3] 50 mcg PO DAILY 07/03/23 07/10/23 Cyanocobalamin [Vitamin B-12] 1,000 mcg PO DAILY 07/03/23 07/10/23 Epa-Dha Fish Oil 2 cap PO DAILY 07/03/23 07/10/23 Losartan Potassium 100 mg PO QPM 07/03/23 07/10/23 Macular Complete Protect 4 tab PO DAILY 07/03/23 07/10/23 Prasterone (Dhea)/Calcium Carb 20 mg PO DAILY 07/03/23 07/10/23 [Dhea 10 mg Tablet] flaxseed oiL [Flaxseed Oil] 500 mg PO DAILY 07/03/23 07/10/23 - Allergies Allergies/Adverse Reactions: Allergies Allergy/AdvReac Type Severity Reaction Status Date / Time Penicillins Allergy Mild Hives Verified 09/12/23 17:30 Sulfa (Sulfonamide Allergy Mild Rash Verified 09/12/23 17:30 Antibiotics) Review of Systems - Other Findings Other Findings: 14 pt review done with positives per hpi; all others reviewed as negative Exam - Vital Signs Vital Signs: Vital Signs x48h Temp Pulse Resp BP Pulse Ox 09/12/23 21:00 80 18 165/79 H 98 09/12/23 19:00 84 16 171/76 H 98 09/12/23 17:30 36.8 C 90 16 160/83 H 100 - Physical Exam Comments/Other: gen - aaox3, nad, polite heent - eomi, nc/at heart - per ed charting lungs - per ed charting abd - nt per pt msk - no acute trauma noted or reported Conclusion/Plan - Lab Results Fish Bones: 09/12/23 18:50 09/12/23 18:50 - Other Other Results/Comments: pt with - - hyponatremia with h/o same multifactorial --> arb, decreased Na intake, and dilutional d/t excess free water intake will hold bp meds and Na wasting meds at this time gentle IVF with Na monitoring avoid hypercorrection and over-correction 4-6 mEq/L correction in 24 h monitor neuro status --> no focal deficits check urine osmolality, urine NA - uti resolved per pt --> asymptomatic now check UA - vertigo h/o bppv pt has taken meclizine in the past f/u labs, electrolytes further orders per clinical course
[2023-09-12] MEDS: SODIUM CHLORIDE 0.9% 1,000 ML IV SCH (22:25)
[2023-09-12 22:49] LABS: ALBUMIN 4.2 g/dL (3.2-5.5); ALBUMIN/GLOBULIN RATIO 1.6 (1.0-2.2); BILIRUBIN,TOTAL 0.8 mg/dL (0.2-1.0); CALCIUM 9.4 mg/dL (8.5-10.3); CREATININE 0.8 mg/dL (0.6-1.3); POTASSIUM 3.8 mmol/L (3.5-4.5); TOTAL PROTEIN 6.9 g/dL (6.4-8.9)
[2023-09-12 23:38] LABS: BILIRUBIN,URINE NEGATIVE (NEGATIVE); GLUCOSE, URINE (UA) NEGATIVE (NEGATIVE); KETONES,URINE (UA) TRACE mg/dL (NEGATIVE); LEUKOCYTE ESTERASE, URINE NEGATIVE (NEGATIVE); NITRITE,URINE NEGATIVE (NEGATIVE); OCCULT BLOOD,URINE SMALL (NEGATIVE); PROTEIN,URINE NEGATIVE (NEGATIVE); UROBILINOGEN,URINE 0.2 (NORMAL) E.U./dL (NORMAL)
[2023-09-12 23:41] LABS: CLARITY,URINE CLEAR (CLEAR)
[2023-09-12 23:44] LABS: BACTERIA,URINE Many /HPF (None Seen); SQUAMOUS EPITHELIAL CELL,UR MANY Squamous (<= Few); WBC,URINE 0-3 /HPF (0-5)
[2023-09-13] MEDS: MAGNESIUM OXIDE 400 MG TABLET PO ONE ×3 (00:05→10:42)
[2023-09-13] MEDS: POTASSIUM CHLORIDE 20 MEQ TABLET PO ONE ×2 (00:06→06:43)
[2023-09-13] MEDS: SODIUM CHLORIDE FLUSH 0.9% 10 ML SYRINGE IVP SCH (00:09)
[2023-09-13 02:45] LABS: CALCIUM 8.9 mg/dL (8.5-10.3); CREATININE 0.7 mg/dL (0.6-1.3); POTASSIUM 3.8 mmol/L (3.5-4.5)
[2023-09-13 04:50] LABS: BASOPHILS % (AUTO) 0.2 %; EOSINOPHILS % (AUTO) 0.7 %; HCT - HEMATOCRIT 30.6 % (37.0-47.0); LYMPHOCYTES # (AUTO) 1.8 10^3/uL (1.5-3.5); LYMPHOCYTES % (AUTO) 28.8 %; MEAN CORPUSCULAR HEMOGLOBIN 30.1 pg (27.0-31.0); MEAN CORPUSCULAR HGB CONC 35.9 g/dL (32.0-36.0); MEAN CORPUSCULAR VOLUME 83.8 fL (81.0-99.0); MEAN PLATELET VOLUME 8.4 fL (7.9-10.8); MONOCYTES # (AUTO) 0.7 10^3/uL (0.0-1.0); MONOCYTES % (AUTO) 11.9 %; NEUTROPHILS # (AUTO) 3.6 10^3/uL (1.5-6.6); NEUTROPHILS % (AUTO) 58.2 %; PLT - PLATELET COUNT 282 10^3/uL (130-450); RED BLOOD COUNT 3.65 10^6/uL (4.20-5.40); RED CELL DISTRIBUTION WIDTH 11.8 % (12.0-15.0); WHITE BLOOD COUNT 6.1 x10^3/uL (4.8-10.8)
[2023-09-13 04:55] LABS: CALCIUM, IONIZED 1.07 mmol/L (1.15-1.33); VBG PH 7.513 (7.31-7.41)
[2023-09-13 05:11] LABS: MAGNESIUM 1.7 mg/dL (1.7-2.3); PHOSPHORUS 2.6 mg/dL (2.5-5.0)
[2023-09-13 05:15] LABS: ALBUMIN 3.7 g/dL (3.2-5.5); ALBUMIN/GLOBULIN RATIO 1.8 (1.0-2.2); BILIRUBIN,TOTAL 0.7 mg/dL (0.2-1.0); CALCIUM 8.9 mg/dL (8.5-10.3); CREATININE 0.7 mg/dL (0.6-1.3); POTASSIUM 3.8 mmol/L (3.5-4.5); TOTAL PROTEIN 5.8 g/dL (6.4-8.9)
[2023-09-13] MEDS: LEVOTHYROXINE 75 MCG TABLET PO SCH (06:42)
[2023-09-13] MEDS: LIOTHYRONINE 5 MCG TABLET PO SCH (06:42)
--- NOTE | 2023-09-13 07:47 | PROVIDER PROGRESS NOTE ---
Subjective - Prog Note Date Prog Note Date: 09/13/23 Prog Note Time: 13:00 - Subjective Pt reports feeling: Improved Subjective: Acute hyponatrimia, Na levels initially 109 at urgent care center. multifactorial, Recent uti on antibiotic, HTN on losartan, intentionally reducing Na intake and frequent water intake. Na 112--114-->119-->-->120-->119 Goal for today Na 120-125 -free water restriction <300cc free water -follow up on Na level Current Medications - Current Medications Current Medications: Active Medications Acetaminophen (Acetaminophen 325 Mg Tablet) 650 mg PO Q6H PRN PRN Reason: Pain 1 to 4, or Fever Calcium Carbonate/Glycine (Calcium Carb (Oyster Shell) 500 Mg Tablet) 1,000 mg PO DAILY [facility] Last Admin: 09/13/23 08:07 Dose: 1,000 mg Cholecalciferol (Cholecalciferol 25 Mcg Tablet) 50 mcg PO DAILY [facility] Last Admin: 09/13/23 08:07 Dose: 50 mcg Cyanocobalamin (Cyanocobalamin 500 Mcg Tablet) 1,000 mcg PO DAILY [facility] Last Admin: 09/13/23 08:07 Dose: 1,000 mcg Enoxaparin Sodium (Enoxaparin 40 Mg/0.4 Ml Syringe) 40 mg SUBQ DAILY [facility] Last Admin: 09/13/23 08:07 Dose: 40 mg Levothyroxine Sodium (Levothyroxine 75 Mcg Tablet) 75 mcg PO QDAC [facility] Last Admin: 09/13/23 06:42 Dose: 75 mcg Liothyronine Sodium (Liothyronine 5 Mcg Tablet) 5 mcg PO QDAC [facility] Last Admin: 09/13/23 06:42 Dose: 5 mcg Meclizine HCl (Meclizine 12.5 Mg Tablet) 12.5 mg PO Q8H PRN PRN Reason: Dizziness Ondansetron HCl (Ondansetron 4 Mg/2 Ml Vial) 4 mg IVP Q6HR PRN PRN Reason: Nausea / Vomiting Sodium Chloride (Sodium Chloride Flush 0.9% 10 Ml Syringe) 10 ml IVP 0100,0900,1700 [facility] Last Admin: 09/13/23 08:07 Dose: 10 ml Sodium Chloride (Sodium Chloride Flush 0.9% 10 Ml Syringe) 10 ml IVP PRN PRN PRN Reason: NEEDED PER PROVIDER ORDERS Levothyroxine [Synthroid] 75 mcg PO QDAC 08/01/22 Liothyronine [Cytomel] 5 mcg PO QDAC 08/01/22 Meclizine [Antivert] 12.5 mg PO Q6H PRN 08/01/22 Calcium Carbonate 2 tab PO DAILY 07/03/23 Cholecalciferol [Vitamin D3] 50 mcg PO DAILY 07/03/23 Cyanocobalamin [Vitamin B-12] 1,000 mcg PO DAILY 07/03/23 Epa-Dha Fish Oil 2 cap PO DAILY 07/03/23 Losartan Potassium 100 mg PO QPM 07/03/23 Macular Complete Protect 4 tab PO DAILY 07/03/23 Prasterone (Dhea)/Calcium Carb [Dhea 10 mg Tablet] 20 mg PO DAILY 07/03/23 flaxseed oiL [Flaxseed Oil] 500 mg PO DAILY 07/03/23 Objective - Vital Signs/Intake & Output Reviewed Vital Signs: Yes Vital Signs: Vital Signs Pulse Resp BP Pulse Ox 09/13/23 07:00 69 13 129/73 98 09/13/23 06:00 63 15 105/53 L 98 09/13/23 05:00 62 10 L 116/59 L 97 09/13/23 04:00 65 12 128/59 L 96 Intake & Output: Intake & Output 09/10/23 09/11/23 09/12/23 09/13/23 23:59 23:59 23:59 23:59 Intake Total 50 340 Output Total 0 675 Balance 50 -335 - Objective General Appearance: positive: No acute distress Eyes Bilateral: positive: PERRL, EOMI ENT: positive: ENT inspection nml Neck: positive: Nml inspection, No JVD Respiratory: positive: No respiratory distress Cardiovascular: positive: Regular rate & rhythm, No murmur, No gallop Abdomen: positive: Non-tender, No distention Back: positive: Nml inspection Skin: positive: Warm, Dry Extremities: positive: Full ROM, No pedal edema Neurologic/Psychiatric: positive: Oriented x3, CN's nml (2-12) - Lab Results Fish Bones: 09/13/23 04:23 09/13/23 10:05 Other Labs: Lab Results x24hrs 09/13/23 09/13/23 09/13/23 Range/Units 04:23 04:23 04:23 WBC 6.1 (4.8-10.8) x10^3/uL RBC 3.65 L (4.20-5.40) 10^6/uL Hgb 11.0 L (12.0-16.0) g/dL Hct 30.6 L (37.0-47.0) % MCV 83.8 (81.0-99.0) fL MCH 30.1 (27.0-31.0) pg MCHC 35.9 (32.0-36.0) g/dL RDW 11.8 L (12.0-15.0) % Plt Count 282 (130-450) 10^3/uL MPV 8.4 (7.9-10.8) fL Neut # (Auto) 3.6 (1.5-6.6) 10^3/uL Lymph # (Auto) 1.8 (1.5-3.5) 10^3/uL [place] # (Auto) 0.7 (0.0-1.0) 10^3/uL Eos # (Auto) 0.0 (0.0-0.7) 10^3/uL Baso # (Auto) 0.0 (0.0-0.1) 10^3/uL Absolute Nucleated RBC 0.00 x10^3/uL Nucleated RBC % 0.0 /100WBC VBG pH 7.513 H (7.31-7.41) Ionized Calcium 1.07 L (1.15-1.33) mmol/L Sodium 120 L* (135-145) mmol/L Potassium 3.8 (3.5-4.5) mmol/L Chloride 90 L (101-111) mmol/L Carbon Dioxide 24 (21-32) mmol/L Anion Gap 6.0 (6-13) BUN 16 (6-20) mg/dL Creatinine 0.7 (0.6-1.3) mg/dL Estimated GFR (MDRD) 81 L (>89) Glucose 99 (74-104) mg/dL Calcium 8.9 (8.5-10.3) mg/dL Phosphorus 2.6 (2.5-5.0) mg/dL Magnesium 1.7 (1.7-2.3) mg/dL Total Bilirubin 0.7 (0.2-1.0) mg/dL AST 23 (10-42) IU/L ALT 14 (10-60) IU/L Alkaline Phosphatase 55 (42-121) IU/L Total Protein 5.8 L (6.4-8.9) g/dL Albumin 3.7 (3.2-5.5) g/dL Globulin 2.1 (2.1-4.2) g/dL Albumin/Globulin Ratio 1.8 (1.0-2.2) Lipase (11-82) U/L Urine Color Urine Clarity (CLEAR) Urine pH (5.0-7.5) PH Ur Specific [place] (1.002-1.030) Urine Protein (NEGATIVE) mg/dL Urine Glucose (UA) (NEGATIVE) mg/dL Urine Ketones (NEGATIVE) mg/dL Urine Occult Blood (NEGATIVE) Urine Nitrite (NEGATIVE) Urine Bilirubin (NEGATIVE) Urine Urobilinogen (NORMAL) E.U./dL Ur Leukocyte Esterase (NEGATIVE) Urine RBC (0-5) /HPF Urine WBC (0-5) /HPF Ur Squamous Epith Cells (<= Few) Urine Bacteria (None Seen) /HPF Urine Culture Comments Nasal Screen MRSA (PCR) (NEGATIVE) 09/13/23 09/12/23 09/12/23 Range/Units 02:20 23:30 22:50 WBC (4.8-10.8) x10^3/uL RBC (4.20-5.40) 10^6/uL Hgb (12.0-16.0) g/dL Hct (37.0-47.0) % MCV (81.0-99.0) fL MCH (27.0-31.0) pg MCHC (32.0-36.0) g/dL RDW (12.0-15.0) % Plt Count (130-450) 10^3/uL MPV (7.9-10.8) fL Neut # (Auto) (1.5-6.6) 10^3/uL Lymph # (Auto) (1.5-3.5) 10^3/uL [place] # (Auto) (0.0-1.0) 10^3/uL Eos # (Auto) (0.0-0.7) 10^3/uL Baso # (Auto) (0.0-0.1) 10^3/uL Absolute Nucleated RBC x10^3/uL Nucleated RBC % /100WBC VBG pH (7.31-7.41) Ionized Calcium (1.15-1.33) mmol/L Sodium 119 L* (135-145) mmol/L Potassium 3.8 (3.5-4.5) mmol/L Chloride 88 L (101-111) mmol/L Carbon Dioxide 24 (21-32) mmol/L Anion Gap 7.0 (6-13) BUN 17 (6-20) mg/dL Creatinine 0.7 (0.6-1.3) mg/dL Estimated GFR (MDRD) 81 L (>89) Glucose 100 (74-104) mg/dL Calcium 8.9 (8.5-10.3) mg/dL Phosphorus (2.5-5.0) mg/dL Magnesium (1.7-2.3) mg/dL Total Bilirubin (0.2-1.0) mg/dL AST (10-42) IU/L ALT (10-60) IU/L Alkaline Phosphatase (42-121) IU/L Total Protein (6.4-8.9) g/dL Albumin (3.2-5.5) g/dL Globulin (2.1-4.2) g/dL Albumin/Globulin Ratio (1.0-2.2) Lipase (11-82) U/L Urine Color YELLOW Urine Clarity CLEAR (CLEAR) Urine pH 6.0 (5.0-7.5) PH Ur Specific [place] 1.010 (1.002-1.030) Urine Protein NEGATIVE (NEGATIVE) mg/dL Urine Glucose (UA) NEGATIVE (NEGATIVE) mg/dL Urine Ketones TRACE (NEGATIVE) mg/dL Urine Occult Blood SMALL H (NEGATIVE) Urine Nitrite NEGATIVE (NEGATIVE) Urine Bilirubin NEGATIVE (NEGATIVE) Urine Urobilinogen 0.2 (NORMAL) (NORMAL) E.U./dL Ur Leukocyte Esterase NEGATIVE (NEGATIVE) Urine RBC 6-10 H (0-5) /HPF Urine WBC 0-3 (0-5) /HPF Ur Squamous Epith Cells MANY Squamous H (<= Few) Urine Bacteria Many H (None Seen) /HPF Urine Culture Comments NOT INDICATED Nasal Screen MRSA (PCR) NEGATIVE (NEGATIVE) 09/12/23 09/12/23 09/12/23 Range/Units 22:13 18:50 18:50 WBC 6.8 (4.8-10.8) x10^3/uL RBC 4.07 L (4.20-5.40) 10^6/uL Hgb 12.3 (12.0-16.0) g/dL Hct 33.8 L (37.0-47.0) % MCV 83.0 (81.0-99.0) fL MCH 30.2 (27.0-31.0) pg MCHC 36.4 H (32.0-36.0) g/dL RDW 11.7 L (12.0-15.0) % Plt Count 337 (130-450) 10^3/uL MPV 8.6 (7.9-10.8) fL Neut # (Auto) 4.5 (1.5-6.6) 10^3/uL Lymph # (Auto) 1.4 L (1.5-3.5) 10^3/uL [place] # (Auto) 0.9 (0.0-1.0) 10^3/uL Eos # (Auto) 0.0 (0.0-0.7) 10^3/uL Baso # (Auto) 0.0 (0.0-0.1) 10^3/uL Absolute Nucleated RBC 0.00 x10^3/uL Nucleated RBC % 0.0 /100WBC VBG pH (7.31-7.41) Ionized Calcium (1.15-1.33) mmol/L Sodium 114 L* 112 L* (135-145) mmol/L Potassium 3.8 4.3 (3.5-4.5) mmol/L Chloride 83 L 79 L* (101-111) mmol/L Carbon Dioxide 22 25 (21-32) mmol/L Anion Gap 9.0 8.0 (6-13) BUN 16 18 (6-20) mg/dL Creatinine 0.8 0.8 (0.6-1.3) mg/dL Estimated GFR (MDRD) 69 L 69 L (>89) Glucose 116 H 121 H (74-104) mg/dL Calcium 9.4 9.8 (8.5-10.3) mg/dL Phosphorus (2.5-5.0) mg/dL Magnesium 1.6 L (1.7-2.3) mg/dL Total Bilirubin 0.8 0.7 (0.2-1.0) mg/dL AST 24 23 (10-42) IU/L ALT 16 16 (10-60) IU/L Alkaline Phosphatase 66 68 (42-121) IU/L Total Protein 6.9 6.9 (6.4-8.9) g/dL Albumin 4.2 4.5 (3.2-5.5) g/dL Globulin 2.7 2.4 (2.1-4.2) g/dL Albumin/Globulin Ratio 1.6 1.9 (1.0-2.2) Lipase 61 (11-82) U/L Urine Color Urine Clarity (CLEAR) Urine pH (5.0-7.5) PH Ur Specific [place] (1.002-1.030) Urine Protein (NEGATIVE) mg/dL Urine Glucose (UA) (NEGATIVE) mg/dL Urine Ketones (NEGATIVE) mg/dL Urine Occult Blood (NEGATIVE) Urine Nitrite (NEGATIVE) Urine Bilirubin (NEGATIVE) Urine Urobilinogen (NORMAL) E.U./dL Ur Leukocyte Esterase (NEGATIVE) Urine RBC (0-5) /HPF Urine WBC (0-5) /HPF Ur Squamous Epith Cells (<= Few) Urine Bacteria (None Seen) /HPF Urine Culture Comments Nasal Screen MRSA (PCR) (NEGATIVE) Sepsis Event Note (H) - Evaluation Current Stage of Sepsis: Ruled out Assessment/Plan - Problem List (1) Hyponatremia Impression: Severe hyponatremia Multifactoral: excessive water intake plus medication side effects Na 112--114-->119-->-->120-->119 Goal for today Na 120-125 -free water restriction <300cc free water -follow up on Na level
[2023-09-13] MEDS: CALCIUM CARB (OYSTER SHELL) 500 MG TABLET PO SCH (08:07)
[2023-09-13] MEDS: ENOXAPARIN 40 MG/0.4 ML SYRINGE SUBQ SCH (08:07)
[2023-09-13] MEDS: CYANOCOBALAMIN 500 MCG TABLET PO SCH (08:07)
[2023-09-13] MEDS: CHOLECALCIFEROL 25 MCG TABLET PO SCH (08:07)
[2023-09-13] MEDS ORDERED: FLAXSEED OIL 1000 MG PO SCH (09:00)
[2023-09-13 10:31] LABS: CREATININE 0.8 mg/dL (0.6-1.3)
[2023-09-13 14:00] LABS: CALCIUM, IONIZED 1.1 mmol/L (1.15-1.33); VBG PH 7.487 (7.31-7.41)
[2023-09-13 14:19] LABS: CALCIUM 9.2 mg/dL (8.5-10.3); CREATININE 0.8 mg/dL (0.6-1.3); POTASSIUM 4.1 mmol/L (3.5-4.5)
[2023-09-13] MEDS: CALCIUM CARBONATE CHEW 500 MG TABLET PO SCH ×2 (14:35→23:56)
--- NOTE | 2023-09-13 16:12 | PHARMACY PROGRESS NOTE ---
- Best Possible Medication History Admit Date and Time: 09/12/23 2566 Processed by: Pharmacy Medications reviewed in ED?: No Medication History completed: Yes Patient Interview: Completed Secondary Source(s): Insurance records As the person ultimately responsible for medication therapy, providers are able to order a medication from an existing home medication list in [facility] via the "Reconcile Routine" prior to Confirmation of that medication by director of academic support. Such practice is discouraged except when the physician, in their clinical judgment, deems that a medical need exists for a medication without regard to previous use.
[2023-09-13 22:29] LABS: CALCIUM, IONIZED 1.1 mmol/L (1.15-1.33); VBG PH 7.514 (7.31-7.41)
[2023-09-14 04:39] LABS: CALCIUM, IONIZED 1.11 mmol/L (1.15-1.33); VBG PH 7.504 (7.31-7.41)
[2023-09-14 04:42] LABS: BASOPHILS % (AUTO) 0.5 %; EOSINOPHILS # (AUTO) 0.1 10^3/uL (0.0-0.7); EOSINOPHILS % (AUTO) 1.4 %; HCT - HEMATOCRIT 34.9 % (37.0-47.0); HGB - HEMOGLOBIN 12.2 g/dL (12.0-16.0); LYMPHOCYTES # (AUTO) 2.2 10^3/uL (1.5-3.5); LYMPHOCYTES % (AUTO) 37.5 %; MEAN CORPUSCULAR HEMOGLOBIN 30.3 pg (27.0-31.0); MEAN CORPUSCULAR VOLUME 86.6 fL (81.0-99.0); MEAN PLATELET VOLUME 8.5 fL (7.9-10.8); MONOCYTES # (AUTO) 0.7 10^3/uL (0.0-1.0); MONOCYTES % (AUTO) 11.2 %; NEUTROPHILS # (AUTO) 2.9 10^3/uL (1.5-6.6); NEUTROPHILS % (AUTO) 49.2 %; PLT - PLATELET COUNT 296 10^3/uL (130-450); RED BLOOD COUNT 4.03 10^6/uL (4.20-5.40); RED CELL DISTRIBUTION WIDTH 12.3 % (12.0-15.0); WHITE BLOOD COUNT 5.8 x10^3/uL (4.8-10.8)
[2023-09-14 04:44] LABS: MAGNESIUM 1.9 mg/dL (1.7-2.3)
[2023-09-14 04:49] LABS: PHOSPHORUS 2.7 mg/dL (2.5-5.0)
[2023-09-14 04:50] LABS: CALCIUM 9.3 mg/dL (8.5-10.3); CREATININE 0.8 mg/dL (0.6-1.3); POTASSIUM 4.2 mmol/L (3.5-4.5)
[2023-09-14 12:18] LABS: CALCIUM, IONIZED 1.29 mmol/L (1.15-1.33); VBG PH 7.446 (7.31-7.41)
[2023-09-14 12:28] LABS: CALCIUM 10.5 mg/dL (8.5-10.3); CREATININE 0.8 mg/dL (0.6-1.3)
--- NOTE | 2023-09-14 12:43 | PROVIDER PROGRESS NOTE ---
Subjective - Prog Note Date Prog Note Date: 09/14/23 Prog Note Time: 13:00 - Subjective Pt reports feeling: Improved (Feels better, had one episode of shaking and unwell feeling in the morning, lasted a few mins without intervention, VSS normal, BS 106 at the time) Subjective: Feel better, appetite is fair, finish whole service of meal, a little anxious Current Medications - Current Medications Current Medications: Active Medications Acetaminophen (Acetaminophen 325 Mg Tablet) 650 mg PO Q6H PRN PRN Reason: Pain 1 to 4, or Fever Calcium Carbonate/Glycine (Calcium Carb (Oyster Shell) 500 Mg Tablet) 1,000 mg PO DAILY [facility] Last Admin: 09/14/23 08:05 Dose: 1,000 mg Cholecalciferol (Cholecalciferol 25 Mcg Tablet) 50 mcg PO DAILY [facility] Last Admin: 09/14/23 08:05 Dose: 50 mcg Cyanocobalamin (Cyanocobalamin 500 Mcg Tablet) 1,000 mcg PO DAILY [facility] Last Admin: 09/14/23 08:05 Dose: 1,000 mcg Enoxaparin Sodium (Enoxaparin 40 Mg/0.4 Ml Syringe) 40 mg SUBQ DAILY [facility] Last Admin: 09/14/23 08:03 Dose: 40 mg Levothyroxine Sodium (Levothyroxine 75 Mcg Tablet) 75 mcg PO QDAC [facility] Last Admin: 09/14/23 06:18 Dose: 75 mcg Liothyronine Sodium (Liothyronine 5 Mcg Tablet) 5 mcg PO QDAC [facility] Last Admin: 09/14/23 06:18 Dose: 5 mcg Meclizine HCl (Meclizine 12.5 Mg Tablet) 12.5 mg PO Q8H PRN PRN Reason: Dizziness Ondansetron HCl (Ondansetron 4 Mg/2 Ml Vial) 4 mg IVP Q6HR PRN PRN Reason: Nausea / Vomiting Sodium Chloride (Sodium Chloride Flush 0.9% 10 Ml Syringe) 10 ml IVP 0100,0900,1700 [facility] Last Admin: 09/14/23 08:06 Dose: 10 ml Sodium Chloride (Sodium Chloride Flush 0.9% 10 Ml Syringe) 10 ml IVP PRN PRN PRN Reason: NEEDED PER PROVIDER ORDERS Sodium Chloride (Sodium Chloride 1 Gm Tablet) 1 gm PO BID [facility] Levothyroxine [Synthroid] 75 mcg PO UD 08/01/22 Liothyronine [Cytomel] 5 mcg PO QDAC 08/01/22 Meclizine [Antivert] 12.5 mg PO Q6H PRN 08/01/22 Cholecalciferol [Vitamin D3] 50 mcg PO DAILY 07/03/23 Cyanocobalamin [Vitamin B-12] 1,000 mcg PO DAILY 07/03/23 Losartan Potassium 100 mg PO QPM 07/03/23 Prasterone (Dhea)/Calcium Carb [Dhea 10 mg Tablet] 20 mg PO DAILY 07/03/23 flaxseed oiL [Flaxseed Oil] 500 mg PO DAILY 07/03/23 Cefdinir 300 mg PO BID 09/13/23 Levothyroxine [Synthroid] 37.5 mcg PO UD 09/13/23 estradioL [Estradiol] 10 mcg VG UD 09/13/23 Objective - Vital Signs/Intake & Output Reviewed Vital Signs: Yes Vital Signs: Vital Signs Pulse Resp BP Pulse Ox 09/14/23 12:00 75 14 175/81 H 96 09/14/23 09:00 74 13 110/77 95 Intake & Output: Intake & Output 09/11/23 09/12/23 09/13/23 09/14/23 23:59 23:59 23:59 23:59 Intake Total 50 770 150 Output Total 0 2150 950 Balance 50 -1380 -800 - Objective General Appearance: positive: No acute distress, Alert Eyes Bilateral: positive: Normal inspection, PERRL, EOMI Neck: positive: Nml inspection, No JVD Respiratory: positive: No respiratory distress Cardiovascular: positive: Regular rate & rhythm, No murmur, No gallop Abdomen: positive: Non-tender, Nml bowel sounds Skin: positive: Warm, Dry Extremities: positive: Non-tender, No pedal edema Neurologic/Psychiatric: positive: Oriented x3, CN's nml (2-12) - Lab Results Fish Bones: 09/14/23 04:23 09/14/23 12:00 Other Labs: Lab Results x24hrs 09/14/23 09/14/23 09/14/23 Range/Units 12:00 12:00 05:59 WBC (4.8-10.8) x10^3/uL RBC (4.20-5.40) 10^6/uL Hgb (12.0-16.0) g/dL Hct (37.0-47.0) % MCV (81.0-99.0) fL MCH (27.0-31.0) pg MCHC (32.0-36.0) g/dL RDW (12.0-15.0) % Plt Count (130-450) 10^3/uL MPV (7.9-10.8) fL Neut # (Auto) (1.5-6.6) 10^3/uL Lymph # (Auto) (1.5-3.5) 10^3/uL [place] # (Auto) (0.0-1.0) 10^3/uL Eos # (Auto) (0.0-0.7) 10^3/uL Baso # (Auto) (0.0-0.1) 10^3/uL Absolute Nucleated RBC x10^3/uL Nucleated RBC % /100WBC VBG pH 7.446 H (7.31-7.41) Ionized Calcium 1.29 (1.15-1.33) mmol/L Sodium 126 L (135-145) mmol/L Potassium 4.0 (3.5-4.5) mmol/L Chloride 93 L (101-111) mmol/L Carbon Dioxide 26 (21-32) mmol/L Anion Gap 7.0 (6-13) BUN 13 (6-20) mg/dL Creatinine 0.8 (0.6-1.3) mg/dL Estimated GFR (MDRD) 69 L (>89) Glucose 94 (74-104) mg/dL POC Whole Bld Glucose 109 H (70 - 100) mg/dL Calcium 10.5 H (8.5-10.3) mg/dL Phosphorus (2.5-5.0) mg/dL Magnesium (1.7-2.3) mg/dL Urine Osmolality (.) mOsmol/kg 09/14/23 09/14/23 09/14/23 Range/Units 04:23 04:23 04:23 WBC (4.8-10.8) x10^3/uL RBC (4.20-5.40) 10^6/uL Hgb (12.0-16.0) g/dL Hct (37.0-47.0) % MCV (81.0-99.0) fL MCH (27.0-31.0) pg MCHC (32.0-36.0) g/dL RDW (12.0-15.0) % Plt Count (130-450) 10^3/uL MPV (7.9-10.8) fL Neut # (Auto) (1.5-6.6) 10^3/uL Lymph # (Auto) (1.5-3.5) 10^3/uL [place] # (Auto) (0.0-1.0) 10^3/uL Eos # (Auto) (0.0-0.7) 10^3/uL Baso # (Auto) (0.0-0.1) 10^3/uL Absolute Nucleated RBC x10^3/uL Nucleated RBC % /100WBC VBG pH 7.504 H (7.31-7.41) Ionized Calcium 1.11 L (1.15-1.33) mmol/L Sodium 126 L (135-145) mmol/L Potassium 4.2 (3.5-4.5) mmol/L Chloride 96 L (101-111) mmol/L Carbon Dioxide 26 (21-32) mmol/L Anion Gap 4.0 L (6-13) BUN 15 (6-20) mg/dL Creatinine 0.8 (0.6-1.3) mg/dL Estimated GFR (MDRD) 69 L (>89) Glucose 93 (74-104) mg/dL POC Whole Bld Glucose (70 - 100) mg/dL Calcium 9.3 (8.5-10.3) mg/dL Phosphorus 2.7 (2.5-5.0) mg/dL Magnesium 1.9 (1.7-2.3) mg/dL Urine Osmolality (.) mOsmol/kg 09/14/23 09/13/23 09/13/23 Range/Units 04:23 22:16 13:50 WBC 5.8 (4.8-10.8) x10^3/uL RBC 4.03 L (4.20-5.40) 10^6/uL Hgb 12.2 (12.0-16.0) g/dL Hct 34.9 L (37.0-47.0) % MCV 86.6 (81.0-99.0) fL MCH 30.3 (27.0-31.0) pg MCHC 35.0 (32.0-36.0) g/dL RDW 12.3 (12.0-15.0) % Plt Count 296 (130-450) 10^3/uL MPV 8.5 (7.9-10.8) fL Neut # (Auto) 2.9 (1.5-6.6) 10^3/uL Lymph # (Auto) 2.2 (1.5-3.5) 10^3/uL [place] # (Auto) 0.7 (0.0-1.0) 10^3/uL Eos # (Auto) 0.1 (0.0-0.7) 10^3/uL Baso # (Auto) 0.0 (0.0-0.1) 10^3/uL Absolute Nucleated RBC 0.00 x10^3/uL Nucleated RBC % 0.0 /100WBC VBG pH 7.514 H (7.31-7.41) Ionized Calcium 1.10 L (1.15-1.33) mmol/L Sodium (135-145) mmol/L Potassium (3.5-4.5) mmol/L Chloride (101-111) mmol/L Carbon Dioxide (21-32) mmol/L Anion Gap (6-13) BUN (6-20) mg/dL Creatinine (0.6-1.3) mg/dL Estimated GFR (MDRD) (>89) Glucose (74-104) mg/dL POC Whole Bld Glucose (70 - 100) mg/dL Calcium (8.5-10.3) mg/dL Phosphorus (2.5-5.0) mg/dL Magnesium 1.7 (1.7-2.3) mg/dL Urine Osmolality (.) mOsmol/kg 09/13/23 09/13/23 09/12/23 Range/Units 13:50 13:50 22:50 WBC (4.8-10.8) x10^3/uL RBC (4.20-5.40) 10^6/uL Hgb (12.0-16.0) g/dL Hct (37.0-47.0) % MCV (81.0-99.0) fL MCH (27.0-31.0) pg MCHC (32.0-36.0) g/dL RDW (12.0-15.0) % Plt Count (130-450) 10^3/uL MPV (7.9-10.8) fL Neut # (Auto) (1.5-6.6) 10^3/uL Lymph # (Auto) (1.5-3.5) 10^3/uL [place] # (Auto) (0.0-1.0) 10^3/uL Eos # (Auto) (0.0-0.7) 10^3/uL Baso # (Auto) (0.0-0.1) 10^3/uL Absolute Nucleated RBC x10^3/uL Nucleated RBC % /100WBC VBG pH 7.487 H (7.31-7.41) Ionized Calcium 1.10 L (1.15-1.33) mmol/L Sodium 120 L* (135-145) mmol/L Potassium 4.1 (3.5-4.5) mmol/L Chloride 90 L (101-111) mmol/L Carbon Dioxide 23 (21-32) mmol/L Anion Gap 7.0 (6-13) BUN 19 (6-20) mg/dL Creatinine 0.8 (0.6-1.3) mg/dL Estimated GFR (MDRD) 69 L (>89) Glucose 162 H (74-104) mg/dL POC Whole Bld Glucose (70 - 100) mg/dL Calcium 9.2 (8.5-10.3) mg/dL Phosphorus (2.5-5.0) mg/dL Magnesium (1.7-2.3) mg/dL Urine Osmolality 252 (.) mOsmol/kg Sepsis Event Note (H) - Evaluation Current Stage of Sepsis: Ruled out Assessment/Plan - Problem List (1) Hyponatremia Impression: Improving properly, Na 120-->126 over 12 hour repeat at noon, Na 126 Today, goal Na 130-132 -continue free water restriction -add salt tab 1g bid -recheck in pm can transfer to [facility]
[2023-09-14] MEDS: SODIUM CHLORIDE 1 GM TABLET PO SCH (13:24)
[2023-09-14] MEDS: LOSARTAN 50 MG TABLET PO SCH (14:19)
[2023-09-14] MEDS: MECLIZINE 12.5 MG TABLET PO PRN (14:19)
[2023-09-14 17:22] LABS: CALCIUM 9.8 mg/dL (8.5-10.3); CREATININE 0.8 mg/dL (0.6-1.3)
[2023-09-15 05:44] LABS: BASOPHILS # (AUTO) 0.1 10^3/uL (0.0-0.1); BASOPHILS % (AUTO) 1.1 %; EOSINOPHILS # (AUTO) 0.1 10^3/uL (0.0-0.7); HCT - HEMATOCRIT 34.2 % (37.0-47.0); HGB - HEMOGLOBIN 11.8 g/dL (12.0-16.0); LYMPHOCYTES # (AUTO) 2.1 10^3/uL (1.5-3.5); LYMPHOCYTES % (AUTO) 32.9 %; MEAN CORPUSCULAR HEMOGLOBIN 30.2 pg (27.0-31.0); MEAN CORPUSCULAR HGB CONC 34.5 g/dL (32.0-36.0); MEAN CORPUSCULAR VOLUME 87.5 fL (81.0-99.0); MEAN PLATELET VOLUME 8.3 fL (7.9-10.8); MONOCYTES # (AUTO) 0.7 10^3/uL (0.0-1.0); MONOCYTES % (AUTO) 10.5 %; NEUTROPHILS # (AUTO) 3.4 10^3/uL (1.5-6.6); NEUTROPHILS % (AUTO) 53.3 %; PLT - PLATELET COUNT 312 10^3/uL (130-450); RED BLOOD COUNT 3.91 10^6/uL (4.20-5.40); RED CELL DISTRIBUTION WIDTH 12.5 % (12.0-15.0); WHITE BLOOD COUNT 6.4 x10^3/uL (4.8-10.8)
[2023-09-15 05:58] LABS: CALCIUM 9.4 mg/dL (8.5-10.3); CREATININE 0.8 mg/dL (0.6-1.3); POTASSIUM 4.1 mmol/L (3.5-4.5)
[2023-09-15 06:40] LABS: THYROID STIMULATING HORMONE 24.42 uIU/mL (0.34-5.60)
[2023-09-15] MEDS: SODIUM CHLORIDE 1 GM TABLET PO SCH (10:59)
--- NOTE | 2023-09-15 14:58 | PROVIDER PROGRESS NOTE ---
Subjective - Prog Note Date Prog Note Date: 09/15/23 Prog Note Time: 14:56 - Subjective Subjective: No acute events overnight. She reports that overall she is feeling much improved from admission and has more energy and better appetite. She was able to get up with assistance and did not have significant dizziness. No fevers, headaches, neurologic changes, vomiting or confusion. Current Medications - Current Medications Current Medications: Current Medications Generic Name Dose Route Start Last Admin Trade Name Freq PRN Reason Stop Dose Admin Calcium Carbonate/Glycine 1,000 mg 09/13/23 09:00 09/15/23 08:24 Calcium Carb (Oyster Shell) 500 Mg Tablet PO 1,000 mg DAILY [facility] Administration Cholecalciferol 50 mcg 09/13/23 09:00 09/15/23 08:25 Cholecalciferol 25 Mcg Tablet PO 50 mcg DAILY [facility] Administration Cyanocobalamin 1,000 mcg 09/13/23 09:00 09/15/23 08:25 Cyanocobalamin 500 Mcg Tablet PO 1,000 mcg DAILY [facility] Administration Enoxaparin Sodium 40 mg 09/13/23 09:00 09/15/23 08:26 Enoxaparin 40 Mg/0.4 Ml Syringe SUBQ 40 mg DAILY [facility] Administration Levothyroxine Sodium 75 mcg 09/13/23 07:00 09/15/23 06:11 Levothyroxine 75 Mcg Tablet PO 75 mcg QDAC [facility] Administration Liothyronine Sodium 5 mcg 09/13/23 07:00 09/15/23 06:11 Liothyronine 5 Mcg Tablet PO 5 mcg QDAC [facility] Administration Losartan Potassium 100 mg 09/14/23 13:57 09/15/23 08:34 Losartan 50 Mg Tablet PO 100 mg DAILY [facility] Administration Meclizine HCl 12.5 mg 09/12/23 22:31 09/14/23 14:19 Meclizine 12.5 Mg Tablet PO 12.5 mg Q8H PRN Administration Dizziness Sodium Chloride 10 ml 09/13/23 01:00 09/15/23 08:26 Sodium Chloride Flush 0.9% 10 Ml Syringe IVP 10 ml 0100,0900,1700 [facility] Administration Sodium Chloride 2 gm 09/15/23 10:00 09/15/23 10:59 Sodium Chloride 1 Gm Tablet PO 1 gm BID BERT Administration Objective - Vital Signs/Intake & Output Reviewed Vital Signs: Yes Vital Signs: Vital Signs x48h Temp Pulse Resp BP Pulse Ox 09/15/23 13:03 37.2 C 84 16 164/82 H 97 09/15/23 08:01 37.1 C 72 16 165/78 H 97 Intake & Output: Intake & Output 09/12/23 09/13/23 09/14/23 09/15/23 23:59 23:59 23:59 23:59 Intake Total 50 770 1333 1100 Output Total 0 2150 950 Balance 50 -9563 024 2604 - Objective General Appearance: positive: No acute distress, Alert Eyes Bilateral: positive: Normal inspection, PERRL, EOMI ENT: positive: ENT inspection nml, Pharynx nml Neck: positive: Nml inspection, Thyroid nml, No JVD Respiratory: positive: No respiratory distress, Breath sounds nml Cardiovascular: positive: Regular rate & rhythm, No gallop, Systolic murmur (2/6 systolic murmur at LLSB and RUSB) Peripheral Pulses: 1+ Dorsalis pedis (R), 1+ Dorsalis pedis (L) Abdomen: positive: Non-tender, No organomegaly, Nml bowel sounds Extremities: positive: Non-tender, Nml appearance, No pedal edema Neurologic/Psychiatric: positive: Oriented x3, CN's nml (2-12), Motor nml, Sensation nml, Mood/affect nml - Lab Results Fish Bones: 09/15/23 05:10 09/15/23 05:10 Other Labs: Lab Results x24hrs 09/15/23 09/15/23 09/14/23 Range/Units 05:10 05:10 14:59 WBC 6.4 (4.8-10.8) x10^3/uL RBC 3.91 L (4.20-5.40) 10^6/uL Hgb 11.8 L (12.0-16.0) g/dL Hct 34.2 L (37.0-47.0) % MCV 87.5 (81.0-99.0) fL MCH 30.2 (27.0-31.0) pg MCHC 34.5 (32.0-36.0) g/dL RDW 12.5 (12.0-15.0) % Plt Count 312 (130-450) 10^3/uL MPV 8.3 (7.9-10.8) fL Neut # (Auto) 3.4 (1.5-6.6) 10^3/uL Lymph # (Auto) 2.1 (1.5-3.5) 10^3/uL Towns # (Auto) 0.7 (0.0-1.0) 10^3/uL Eos # (Auto) 0.1 (0.0-0.7) 10^3/uL Baso # (Auto) 0.1 (0.0-0.1) 10^3/uL Absolute Nucleated RBC 0.00 x10^3/uL Nucleated RBC % 0.0 /100WBC Sodium 128 L 128 L (135-145) mmol/L Potassium 4.1 4.0 (3.5-4.5) mmol/L Chloride 97 L 94 L (101-111) mmol/L Carbon Dioxide 25 26 (21-32) mmol/L Anion Gap 6.0 8.0 (6-13) BUN 18 16 (6-20) mg/dL Creatinine 0.8 0.8 (0.6-1.3) mg/dL Estimated GFR (MDRD) 69 L 69 L (>89) Glucose 95 107 H (74-104) mg/dL Calcium 9.4 9.8 (8.5-10.3) mg/dL TSH 24.42 H (0.34-5.60) uIU/mL Free T4 Direct 0.98 (0.58-1.64) ng/dL ABX Reporting Has patient been on IV antibiotics over the past 48 hours?: No Sepsis Event Note (H) - Evaluation Current Stage of Sepsis: Ruled out Assessment/Plan - Problem List (1) Hyponatremia Impression: Her hyponatremia is thought to be secondary to nutritional and dilutional caus es. She was recently diagnosed with hypertension though she has been reducing her salt intake and she has also been drinking more excess free fluid as well due to a recent UTI. She was recently started on losartan for her blood pressure as well. -Sodium has been improving since admission and currently stable at 128 for the past 2 mornings. -Salt tabs 1 g twice daily were added yesterday. -Will increase salt tabs dose to 2 g twice daily. -Check urine sodium, urine osmolality, serum osmolality and serum cortisol. -If her sodium is stable to improved tomorrow can hopefully be discharged home. (2) Hypothyroidism Impression: -TSH elevated to 24 but free T4 is normal at 0.9. -Resume home thyroid medications. -Given her free T4 is normal, do not suspect hypothyroidism as the major cause for her hyponatremia. (3) Indigestion Impression: -Maalox as needed (4) HTN (hypertension) Impression: Currently controlled. -Losartan was held on admission but resumed subsequently. Qualifiers: Hypertension type: primary hypertension Qualified Code(s): I10 - Essential (primary) hypertension (5) BPPV (benign paroxysmal positional vertigo) Impression: -Meclizine as needed Plan Patient has remained in the hospital past 96 hours due to slow increase in her sodium level. I anticipate discharge going to occur within the next 24 hours.
[2023-09-15] MEDS: MAG HYDROX/AL HYDROX/SIMETH 30 ML UDC PO PRN (16:22)
[2023-09-15 20:39] VITALS: O2SAT 98
[2023-09-16 06:02] LABS: BASOPHILS # (AUTO) 0.1 10^3/uL (0.0-0.1); BASOPHILS % (AUTO) 0.9 %; EOSINOPHILS # (AUTO) 0.2 10^3/uL (0.0-0.7); HCT - HEMATOCRIT 34.4 % (37.0-47.0); HGB - HEMOGLOBIN 12.1 g/dL (12.0-16.0); LYMPHOCYTES # (AUTO) 1.8 10^3/uL (1.5-3.5); LYMPHOCYTES % (AUTO) 28.3 %; MEAN CORPUSCULAR HEMOGLOBIN 31.2 pg (27.0-31.0); MEAN CORPUSCULAR HGB CONC 35.2 g/dL (32.0-36.0); MEAN CORPUSCULAR VOLUME 88.7 fL (81.0-99.0); MEAN PLATELET VOLUME 9.4 fL (7.9-10.8); MONOCYTES # (AUTO) 0.5 10^3/uL (0.0-1.0); MONOCYTES % (AUTO) 7.5 %; NEUTROPHILS # (AUTO) 3.8 10^3/uL (1.5-6.6); NEUTROPHILS % (AUTO) 60.1 %; PLT - PLATELET COUNT 281 10^3/uL (130-450); RED BLOOD COUNT 3.88 10^6/uL (4.20-5.40); RED CELL DISTRIBUTION WIDTH 12.7 % (12.0-15.0); WHITE BLOOD COUNT 6.4 x10^3/uL (4.8-10.8)
[2023-09-16 06:23] LABS: CALCIUM 9.5 mg/dL (8.5-10.3); CREATININE 0.8 mg/dL (0.6-1.3); POTASSIUM 3.9 mmol/L (3.5-4.5)
[2023-09-16 08:20] VITALS: BP 168/91
[2023-09-16] MEDS: amLODIPine 5 MG TABLET PO SCH (08:25)
--- NOTE | 2023-09-16 11:23 | Discharge Plan ---
Discharge Plan Problem Reviewed?: Yes Disposition: 01 Home, Self Care Condition: Good Prescriptions: amLODIPine [Norvasc] 5 mg PO DAILY 30 Days #30 tab Sodium Chloride [Salt Tab] 2 gm PO BID 14 Days #56 tab Diet: Regular (Limit your free water intake (pure water such as tap, filtered or bottled water) to less than 500 ml per day. Be sure to drink sugar-free Gatorade or similar drinks to maintain hydration.) Activity Restrictions: No Restrictions Shower Restrictions: No Driving Restrictions: No Weight Bearing: Full Weight Health Concerns: You were admitted to the hospital due to hyponatremia with your sodium level being found to be 109. This is in part due to to you drinking excess "free water" which is water that is from the tap, filtered or bottled, meaning that it had no extra dissolved contents. This can lower your blood sodium level to dangerous levels. While you are in the hospital we limited the amount of free water you could take per day and ultimately had to give you salt tabs, which will be a new prescription for you. With those 2 interventions you are sodium level reached a safe level of 131 on the day of discharge. Given that you have symptomatically improved and your laboratory values have improved you are safe for discharge home. Plan of Treatment: :You are being discharged home today with 2 new prescriptions as follows: 1 - amlodipine 5 mg to be taken once daily in the morning. This is for your high blood pressure. 2 -sodium chloride (salt) 2 g tabs to be taken twice daily (once in the morning and once in the evening). This is to help improve your sodium level. Be sure to continue to limit the amount of free water you take at home so that your sodium level does not decrease. Please be sure to contact your primary care provider's office tomorrow morning and ask for a hospital follow-up visit within the next week. When you contact your primary care provider's office, please let them know that we recommend you should obtain repeat labs (a chemistry panel) in 1 week after discharge. Should you start to notice you are feeling weaker, having muscle cramps, feeling confused, develop numbness/tingling, please seek immediate medical attention to have your sodium level checked. Care Goals: Our goal would be to help you to avoid having hyponatremia again. Additional Instructions or Follow Up instructions: Please see the above note. Contact your PCP office tomorrow to schedule a 1 [facility] follow-up visit as well as 1 week lab check to ensure your sodium level is normal. No Smoking: If you smoke, Please STOP! Call for help. Follow-up with: Kassy Green ARNP [Primary Care Provider] -
--- NOTE | 2023-09-16 11:44 | DISCHARGE SUMMARY ---
Discharge Summary Admit Date: 09/12/23 Discharge Date: 09/16/23 Discharging Provider: Dr. Husam Davila MD Primary Care Provider: JAILYN Cramer Code Status: Attempt Resuscitation Condition at Discharge: Good Discharge Disposition: 01 Home, Self Care - DIAGNOSES Admission Diagnoses: Hyponatremia Discharge Diagnoses with Status of Each Condition: (1) Hyponatremia - improved from 112 on admission to 131 at discharge (2) Hypothyroidism - TSH elevated 24 but free T4 normal at 0.9 (3) Hypertension - home losartan was continued, and 5 mg amlodipine added at discharge - HPI History of Present Illness: She is a 78-year-old woman with a history of hypothyroidism, hypertension and previous hyponatremia who initially presented to an urgent care center 2 days prior to admission for UTI symptoms and was diagnosed with a urinary tract infection. She had labs drawn at that time that resulted with a sodium level of 109. She indicates that she had been drinking excess water to help "flush out" her UTI. She also indicates that she has been reducing her sodium intake due to her recent diagnosis of hypertension. She was sent to the hospital due to her hyponatremia. She denies any fevers, chills, chest pain or shortness of breath. She had no headache, confusion or neurologic symptoms. She no longer had any UTI symptoms in the emergency department. Repeat labs in the emergency department showed a serum sodium of 112 and a urinalysis indicated resolution of her UTI. She was admitted for further care. - CONSULTS | PROCEDURES Consultations: None Procedures: None - HOSPITAL COURSE Hospital Course: It was felt that her hyponatremia is most likely to be multifactorial in nature, with dilutional causes secondary to drinking excess free water as well as nutritional causes due to reducing her sodium intake being the primary factors. She was placed on a free water restriction and initially given isotonic normal saline. Urine sodium and osmolality was ordered however was not obtained prior to discharge. Serum TSH was elevated to 24 but her free T4 was 0.9, thus it was felt hypothyroidism was not a major contributor. Her serum sodium improved to the mid 120s with IV fluids however it plateaued at that range. Salt tablets were added and over the next 36 hours her sodium level increased gradually in an appropriate fashion to 131. During her stay she never had any neurologic symptoms and felt well at the time of discharge. She was ambulatory without any assistance as well. She was advised to continue free water restriction after discharge and she was prescribed 2 g salt tabs twice daily. For her chronic medical conditions her hypothyroidism did not require adjustment to her medication. For her hypertension, her losartan was continued but her b lood pressure remained elevated thus she was prescribed 5 mg amlodipine daily. Her recent UTI appeared resolved at the time of admission and did not require further treatment. For her chronic BPPV, she did not have any inpatient issues. She will require repeat BMP checked within 1 week of discharge to ensure appropriate sodium balance. She was given 14 days worth of salt tablets and may need additional doses or dose adjustment based on repeat labs. - ALLERGIES Allergies/Adverse Reactions: Allergies Allergy/AdvReac Type Severity Reaction Status Date / Time Penicillins Allergy Mild Hives Verified 09/12/23 17:30 Sulfa (Sulfonamide Allergy Mild Rash Verified 09/12/23 17:30 Antibiotics) - MEDICATIONS Home Medications: Ambulatory Orders Medication Instructions Recorded Confirmed Levothyroxine [Synthroid] 75 mcg PO UD 08/01/22 09/13/23 Liothyronine [Cytomel] 5 mcg PO QDAC 08/01/22 09/13/23 Meclizine [Antivert] 12.5 mg PO Q6H PRN 08/01/22 09/13/23 Cholecalciferol [Vitamin D3] 50 mcg PO DAILY 07/03/23 09/13/23 Cyanocobalamin [Vitamin B-12] 1,000 mcg PO DAILY 07/03/23 09/13/23 Losartan Potassium 100 mg PO QPM 07/03/23 09/13/23 Prasterone (Dhea)/Calcium Carb 20 mg PO DAILY 07/03/23 09/13/23 [Dhea 10 mg Tablet] flaxseed oiL [Flaxseed Oil] 500 mg PO DAILY 07/03/23 09/13/23 Cefdinir 300 mg PO BID 09/13/23 09/13/23 Levothyroxine [Synthroid] 37.5 mcg PO UD 09/13/23 09/13/23 estradioL [Estradiol] 10 mcg VG UD 09/13/23 09/13/23 Losartan [Cozaar] 100 mg PO DAILY tab 09/16/23 Sodium Chloride [Salt Tab] 2 gm PO BID 14 Days #56 tab 09/16/23 amLODIPine [Norvasc] 5 mg PO DAILY 30 Days #30 tab 05/19/24 - PHYSICAL EXAM AT DISCHARGE General Appearance: positive: No acute distress, Alert Eyes Bilateral: positive: Normal inspection, PERRL, EOMI ENT: positive: ENT inspection nml, Pharynx nml, No signs of dehydration Neck: positive: Nml inspection, Thyroid nml, No JVD, Trachea midline Respiratory: positive: No respiratory distress, Breath sounds nml. negative: Wheezes, Rales, Rhonchi Cardiovascular: positive: Regular rate & rhythm, No gallop, Systolic murmur (Soft 2/6 systolic murmur at RUSB) Peripheral Pulses: positive: 2+ Abdomen: positive: Non-tender, No organomegaly, Nml bowel sounds, No distention Skin: positive: Color nml, No rash, Warm, Dry Extremities: positive: Nml appearance, No pedal edema Neurologic/Psychiatric: positive: Oriented x3, CN's nml (2-12), Motor nml, Sensation nml, Mood/affect nml - LABS Result Diagrams: 09/16/23 05:31 09/16/23 05:31 Other Lab Results: Laboratory Tests 09/12/23 09/12/23 09/12/23 18:50 18:50 22:13 WBC 6.8 RBC 4.07 L Hgb 12.3 Hct 33.8 L MCV 83.0 MCH 30.2 MCHC 36.4 H RDW 11.7 L Plt Count 337 MPV 8.6 Neut # (Auto) 4.5 Lymph # (Auto) 1.4 L [place] # (Auto) 0.9 Eos # (Auto) 0.0 Baso # (Auto) 0.0 Absolute Nucleated RBC 0.00 Nucleated RBC % 0.0 VBG pH Ionized Calcium Sodium 112 L* 114 L* Potassium 4.3 3.8 Chloride 79 L* 83 L Carbon Dioxide 25 22 Anion Gap 8.0 9.0 BUN 18 16 Creatinine 0.8 0.8 Estimated GFR (MDRD) 69 L 69 L Glucose 121 H 116 H POC Whole Bld Glucose Calcium 9.8 9.4 Phosphorus Magnesium 1.6 L Total Bilirubin 0.7 0.8 AST 23 24 ALT 16 16 Alkaline Phosphatase 68 66 Total Protein 6.9 6.9 Albumin 4.5 4.2 Globulin 2.4 2.7 Albumin/Globulin Ratio 1.9 1.6 Lipase 61 TSH Free T4 Direct Cortisol AM Sample Urine Color Urine Clarity Urine pH Ur Specific [place] Urine Protein Urine Glucose (UA) Urine Ketones Urine Occult Blood Urine Nitrite Urine Bilirubin Urine Urobilinogen Ur Leukocyte Esterase Urine RBC Urine WBC Ur Squamous Epith Cells Urine Bacteria Urine Culture Comments Urine Osmolality Nasal Screen MRSA (PCR) 09/12/23 09/12/23 09/12/23 22:50 22:50 23:30 WBC RBC Hgb Hct MCV MCH MCHC RDW Plt Count MPV Neut # (Auto) Lymph # (Auto) [place] # (Auto) Eos # (Auto) Baso # (Auto) Absolute Nucleated RBC Nucleated RBC % VBG pH Ionized Calcium Sodium Potassium Chloride Carbon Dioxide Anion Gap BUN Creatinine Estimated GFR (MDRD) Glucose POC Whole Bld Glucose Calcium Phosphorus Magnesium Total Bilirubin AST ALT Alkaline Phosphatase Total Protein Albumin Globulin Albumin/Globulin Ratio Lipase TSH Free T4 Direct Cortisol AM Sample Urine Color YELLOW Urine Clarity CLEAR Urine pH 6.0 Ur Specific [place] 1.010 Urine Protein NEGATIVE Urine Glucose (UA) NEGATIVE Urine Ketones TRACE Urine Occult Blood SMALL H Urine Nitrite NEGATIVE Urine Bilirubin NEGATIVE Urine Urobilinogen 0.2 (NORMAL) Ur Leukocyte Esterase NEGATIVE Urine RBC 6-10 H Urine WBC 0-3 Ur Squamous Epith Cells MANY Squamous H Urine Bacteria Many H Urine Culture Comments NOT INDICATED Urine Osmolality 252 Nasal Screen MRSA (PCR) NEGATIVE 09/13/23 09/13/23 09/13/23 02:20 04:23 04:23 WBC 6.1 RBC 3.65 L Hgb 11.0 L Hct 30.6 L MCV 83.8 MCH 30.1 MCHC 35.9 RDW 11.8 L Plt Count 282 MPV 8.4 Neut # (Auto) 3.6 Lymph # (Auto) 1.8 [place] # (Auto) 0.7 Eos # (Auto) 0.0 Baso # (Auto) 0.0 Absolute Nucleated RBC 0.00 Nucleated RBC % 0.0 VBG pH Ionized Calcium Sodium 119 L* 120 L* Potassium 3.8 3.8 Chloride 88 L 90 L Carbon Dioxide 24 24 Anion Gap 7.0 6.0 BUN 17 16 Creatinine 0.7 0.7 Estimated GFR (MDRD) 81 L 81 L Glucose 100 99 POC Whole Bld Glucose Calcium 8.9 8.9 Phosphorus 2.6 Magnesium 1.7 Total Bilirubin 0.7 AST 23 ALT 14 Alkaline Phosphatase 55 Total Protein 5.8 L Albumin 3.7 Globulin 2.1 Albumin/Globulin Ratio 1.8 Lipase TSH Free T4 Direct Cortisol AM Sample Urine Color Urine Clarity Urine pH Ur Specific [place] Urine Protein Urine Glucose (UA) Urine Ketones Urine Occult Blood Urine Nitrite Urine Bilirubin Urine Urobilinogen Ur Leukocyte Esterase Urine RBC Urine WBC Ur Squamous Epith Cells Urine Bacteria Urine Culture Comments Urine Osmolality Nasal Screen MRSA (PCR) 09/13/23 09/13/23 09/13/23 04:23 10:05 10:05 WBC RBC Hgb Hct MCV MCH MCHC RDW Plt Count MPV Neut # (Auto) Lymph # (Auto) [place] # (Auto) Eos # (Auto) Baso # (Auto) Absolute Nucleated RBC Nucleated RBC % VBG pH 7.513 H Ionized Calcium 1.07 L Sodium 119 L* Potassium 4.0 Chloride 88 L Carbon Dioxide 23 Anion Gap 8.0 BUN 16 Creatinine 0.8 Estimated GFR (MDRD) 69 L Glucose 145 H POC Whole Bld Glucose Calcium 9.0 Phosphorus Magnesium 1.6 L Total Bilirubin AST ALT Alkaline Phosphatase Total Protein Albumin Globulin Albumin/Globulin Ratio Lipase TSH Free T4 Direct Cortisol AM Sample Urine Color Urine Clarity Urine pH Ur Specific [place] Urine Protein Urine Glucose (UA) Urine Ketones Urine Occult Blood Urine Nitrite Urine Bilirubin Urine Urobilinogen Ur Leukocyte Esterase Urine RBC Urine WBC Ur Squamous Epith Cells Urine Bacteria Urine Culture Comments Urine Osmolality Nasal Screen MRSA (PCR) 09/13/23 09/13/23 09/13/23 13:50 13:50 13:50 WBC RBC Hgb Hct MCV MCH MCHC RDW Plt Count MPV Neut # (Auto) Lymph # (Auto) [place] # (Auto) Eos # (Auto) Baso # (Auto) Absolute Nucleated RBC Nucleated RBC % VBG pH 7.487 H Ionized Calcium 1.10 L Sodium 120 L* Potassium 4.1 Chloride 90 L Carbon Dioxide 23 Anion Gap 7.0 BUN 19 Creatinine 0.8 Estimated GFR (MDRD) 69 L Glucose 162 H POC Whole Bld Glucose Calcium 9.2 Phosphorus Magnesium 1.7 Total Bilirubin AST ALT Alkaline Phosphatase Total Protein Albumin Globulin Albumin/Globulin Ratio Lipase TSH Free T4 Direct Cortisol AM Sample Urine Color Urine Clarity Urine pH Ur Specific [place] Urine Protein Urine Glucose (UA) Urine Ketones Urine Occult Blood Urine Nitrite Urine Bilirubin Urine Urobilinogen Ur Leukocyte Esterase Urine RBC Urine WBC Ur Squamous Epith Cells Urine Bacteria Urine Culture Comments Urine Osmolality Nasal Screen MRSA (PCR) 09/13/23 09/14/23 09/14/23 22:16 04:23 04:23 WBC 5.8 RBC 4.03 L Hgb 12.2 Hct 34.9 L MCV 86.6 MCH 30.3 MCHC 35.0 RDW 12.3 Plt Count 296 MPV 8.5 Neut # (Auto) 2.9 Lymph # (Auto) 2.2 [place] # (Auto) 0.7 Eos # (Auto) 0.1 Baso # (Auto) 0.0 Absolute Nucleated RBC 0.00 Nucleated RBC % 0.0 VBG pH 7.514 H Ionized Calcium 1.10 L Sodium 126 L Potassium 4.2 Chloride 96 L Carbon Dioxide 26 Anion Gap 4.0 L BUN 15 Creatinine 0.8 Estimated GFR (MDRD) 69 L Glucose 93 POC Whole Bld Glucose Calcium 9.3 Phosphorus Magnesium Total Bilirubin AST ALT Alkaline Phosphatase Total Protein Albumin Globulin Albumin/Globulin Ratio Lipase TSH Free T4 Direct Cortisol AM Sample Urine Color Urine Clarity Urine pH Ur Specific [place] Urine Protein Urine Glucose (UA) Urine Ketones Urine Occult Blood Urine Nitrite Urine Bilirubin Urine Urobilinogen Ur Leukocyte Esterase Urine RBC Urine WBC Ur Squamous Epith Cells Urine Bacteria Urine Culture Comments Urine Osmolality Nasal Screen MRSA (PCR) 09/14/23 09/14/23 09/14/23 04:23 04:23 05:59 WBC RBC Hgb Hct MCV MCH MCHC RDW Plt Count MPV Neut # (Auto) Lymph # (Auto) [place] # (Auto) Eos # (Auto) Baso # (Auto) Absolute Nucleated RBC Nucleated RBC % VBG pH 7.504 H Ionized Calcium 1.11 L Sodium Potassium Chloride Carbon Dioxide Anion Gap BUN Creatinine Estimated GFR (MDRD) Glucose POC Whole Bld Glucose 109 H Calcium Phosphorus 2.7 Magnesium 1.9 Total Bilirubin AST ALT Alkaline Phosphatase Total Protein Albumin Globulin Albumin/Globulin Ratio Lipase TSH Free T4 Direct Cortisol AM Sample Urine Color Urine Clarity Urine pH Ur Specific [place] Urine Protein Urine Glucose (UA) Urine Ketones Urine Occult Blood Urine Nitrite Urine Bilirubin Urine Urobilinogen Ur Leukocyte Esterase Urine RBC Urine WBC Ur Squamous Epith Cells Urine Bacteria Urine Culture Comments Urine Osmolality Nasal Screen MRSA (PCR) 09/14/23 09/14/23 09/14/23 12:00 12:00 14:59 WBC RBC Hgb Hct MCV MCH MCHC RDW Plt Count MPV Neut # (Auto) Lymph # (Auto) [place] # (Auto) Eos # (Auto) Baso # (Auto) Absolute Nucleated RBC Nucleated RBC % VBG pH 7.446 H Ionized Calcium 1.29 Sodium 126 L 128 L Potassium 4.0 4.0 Chloride 93 L 94 L Carbon Dioxide 26 26 Anion Gap 7.0 8.0 BUN 13 16 Creatinine 0.8 0.8 Estimated GFR (MDRD) 69 L 69 L Glucose 94 107 H POC Whole Bld Glucose Calcium 10.5 H 9.8 Phosphorus Magnesium Total Bilirubin AST ALT Alkaline Phosphatase Total Protein Albumin Globulin Albumin/Globulin Ratio Lipase TSH Free T4 Direct Cortisol AM Sample Urine Color Urine Clarity Urine pH Ur Specific [place] Urine Protein Urine Glucose (UA) Urine Ketones Urine Occult Blood Urine Nitrite Urine Bilirubin Urine Urobilinogen Ur Leukocyte Esterase Urine RBC Urine WBC Ur Squamous Epith Cells Urine Bacteria Urine Culture Comments Urine Osmolality Nasal Screen MRSA (PCR) 09/15/23 09/15/23 09/16/23 05:10 05:10 05:31 WBC 6.4 6.4 RBC 3.91 L 3.88 L Hgb 11.8 L 12.1 Hct 34.2 L 34.4 L MCV 87.5 88.7 MCH 30.2 31.2 H MCHC 34.5 35.2 RDW 12.5 12.7 Plt Count 312 281 MPV 8.3 9.4 Neut # (Auto) 3.4 3.8 Lymph # (Auto) 2.1 1.8 [place] # (Auto) 0.7 0.5 Eos # (Auto) 0.1 0.2 Baso # (Auto) 0.1 0.1 Absolute Nucleated RBC 0.00 0.00 Nucleated RBC % 0.0 0.0 VBG pH Ionized Calcium Sodium 128 L Potassium 4.1 Chloride 97 L Carbon Dioxide 25 Anion Gap 6.0 BUN 18 Creatinine 0.8 Estimated GFR (MDRD) 69 L Glucose 95 POC Whole Bld Glucose Calcium 9.4 Phosphorus Magnesium Total Bilirubin AST ALT Alkaline Phosphatase Total Protein Albumin Globulin Albumin/Globulin Ratio Lipase TSH 24.42 H Free T4 Direct 0.98 Cortisol AM Sample Urine Color Urine Clarity Urine pH Ur Specific [place] Urine Protein Urine Glucose (UA) Urine Ketones Urine Occult Blood Urine Nitrite Urine Bilirubin Urine Urobilinogen Ur Leukocyte Esterase Urine RBC Urine WBC Ur Squamous Epith Cells Urine Bacteria Urine Culture Comments Urine Osmolality Nasal Screen MRSA (PCR) 09/16/23 05:31 WBC RBC Hgb Hct MCV MCH MCHC RDW Plt Count MPV Neut # (Auto) Lymph # (Auto) [place] # (Auto) Eos # (Auto) Baso # (Auto) Absolute Nucleated RBC Nucleated RBC % VBG pH Ionized Calcium Sodium 131 L Potassium 3.9 Chloride 99 L Carbon Dioxide 26 Anion Gap 6.0 BUN 18 Creatinine 0.8 Estimated GFR (MDRD) 69 L Glucose 92 POC Whole Bld Glucose Calcium 9.5 Phosphorus Magnesium Total Bilirubin AST ALT Alkaline Phosphatase Total Protein Albumin Globulin Albumin/Globulin Ratio Lipase TSH Free T4 Direct Cortisol AM Sample 13.7 Urine Color Urine Clarity Urine pH Ur Specific [place] Urine Protein Urine Glucose (UA) Urine Ketones Urine Occult Blood Urine Nitrite Urine Bilirubin Urine Urobilinogen Ur Leukocyte Esterase Urine RBC Urine WBC Ur Squamous Epith Cells Urine Bacteria Urine Culture Comments Urine Osmolality Nasal Screen MRSA (PCR) - SEPSIS Current Stage of Sepsis: Ruled out - FOLLOW UP Follow Up: Patient is to have a hospital follow-up within 1 week of discharge with her PCP. - TIME SPENT Time Spent in Discharge (Minutes): 40
== END 2023-09-16 13:21 | disposition home or self-care (01) | DRG 641 ==
LOC: ED 17:26 → ICU 21:56 → MS2 09-14 16:17
PROVIDERS: ADMIT Student in an Organized Health Care Education/Training Program; ATTEND Hospitalist
DX: E87.1 Hypo-osmolality and hyponatremia (principal); R42 Dizziness and giddiness; R31.9 Hematuria, unspecified; R82.4 Acetonuria; Z86.2 Personal history of diseases of the blood and blood-forming organs and certain disorders involving the immune mechanism; E03.9 Hypothyroidism, unspecified; I10 Essential (primary) hypertension; R63.8 Other symptoms and signs concerning food and fluid intake; H81.10 Benign paroxysmal vertigo, unspecified ear; T46.5X5A Adverse effect of other antihypertensive drugs, initial encounter; K30 Functional dyspepsia; Z79.890 Hormone replacement therapy; Z79.899 Other long term (current) drug therapy; Z87.440 Personal history of urinary (tract) infections
CPT/HCPCS: 36415; 80048; 80053; 81001; 82330; 82533; 83690; 83735; 83930; 83935; 84100; 84439; 84443; 85025; 87150; 96360; 99284; 99285; A9270; J1650; 84300; 87086